=== PATIENT | male | born 1960 | race African-American/Black ===

== ENCOUNTER 2018-03-16 13:06 | Inpatient (IN) | payer OTHER ==
[2018-03-16 13:26] VITALS: BMI 32.0
--- NOTE | 2018-03-16 15:07 | HP ---
COWS - Scale Resting Pulse: 0= [place] 80 or Below Sweatin= Chills/Flushing Restless Observation: 1= Difficult to Sit Still Pupil Size: 1= Pupils >than Normal Bone or Joint Aches: 2= Severe Diffuse Aches Runny Nose/ Eye Tearin= Runny Nose/Eyes GI Upset > 30mins: 2= Nausea/Diarrhea Tremor Observation: 1= Tremor [place], Not Seen Yawning Observation: 0= None Anxiety or Irritability: 2=Irritable/Anxious Goose Flesh Skin: 0=Smooth Skin COWS Score: 12 CIWA Score Nausea/Vomitin Muscle Tremors: 1-None Visible, but [place] Anxiety: 3 Agitation: 3 Paroxysmal Sweats: 2 Orientation: 0-Oriented Tacttile Disturbances: 2-Mild Itch/Numbness/Burn Auditory Disturbances: 0-None Visual Disturbances: 0-None Headache: 1-Very Mild CIWA-Ar Total Score: 14 - Admission Criteria [facility] Guidelines: Admission for Medically Managed Detox: Requires at least one of the followin. CIWA greater than 12 2. Seizures within the past 24 hours 3. Delirium tremens within the past 24 hours 4. Hallucinations within the past 24 hours 5. Acute intervention needed for co occurring medical disorder 6. Acute intervention needed for co occurring psychiatric disorder 7. Severe withdrawal that cannot be handled at a lower level of care (continued vomiting, continued diarrhea, abnormal vital signs) requiring intravenous medication and/or fluids 8. Admission [facility] Chief Complaint: PATIENT PRESENTS WITH ETOH WITHDRAWAL AND HEROIN WITHDRAWAL SX Allergies/Adverse Reactions: Allergies Allergy/AdvReac Type Severity Reaction Status Date / Time No Known Allergies Allergy Verified 03/16/18 13:44 History of Present Illness: PATIENT IS NEW PATIENT TO [facility]. PRESENTS WITH ETOH/HEROIN WITHDRAWAL SX. PATIENT LAST DETOX WAS AT [facility] 2 MONTHS. WAS ON SUBOXONE PROGRAM BUT PATIENT STOPPED TAKING MEDICATION DUE TO SIDE EFFECTS. ISTOP VERIFIED LAST PRESCRIPTION WAS 02/25/18 FOR 7 DAYS. PATIENT STARTED DRINKING AT AGE 15, DRINKS UP 12 BEERS DAILY, LAST DRINK WAS LAST NIGHT. PATIENT DENIES SEIZURES, BLACKOUTS , FALLS AND DTS. PATIENT ALSO STARTING SNIFF HEROIN SINCE AGE 24 AND USES 9 BAGS DAILY. LAST USE LAST NIGHT. PATIENT DENIES IVDA. PMH INCLUDES DM, BPH, HLD , GERD, HTN, CHF, DEPRESSION AND SCIATICA. DENIES SI/HI AND SUICIDE ATTEMPTS. Exam Limitations: No Limitations - Ebola screening Have you traveled outside of the country in the last 21 days: No Have you had contact with anyone from an Ebola affected area: No Have you been sick,other than usual withdrawal symptoms: No Do you have a fever: No - Review of Systems Constitutional: Chills, Night Sweats, Changes in sleep EENT: reports: Tearing, Nose Congestion Respiratory: reports: Cough Cardiac: reports: No Symptoms Reported GI: reports: Diarrhea, Nausea, Poor Fluid Intake, Indigestion : reports: No Symptoms Reported Musculoskeletal: reports: Back Pain, Muscle Pain Integumentary: reports: Sweating Neuro: reports: Headache, Numbness, Tingling, Tremors Endocrine: reports: No Symptoms Reported Hematology: reports: No Symptoms Reported Psychiatric: reports: Orientated x3, Anxious, Depressed Patient History - Patient Medical History Hx Anemia: No Hx Asthma: No Hx Chronic Obstructive Pulmonary Disease (COPD): No Hx Cancer: No Hx Cardiac Disorders: Yes (HTN) Hx Congestive Heart Failure: Yes Hx Hypertension: Yes (ON MEDS) Hx Hypercholesterolemia: Yes Hx Pacemaker: No HX Cerebrovascular Accident: No Hx Seizures: No Hx Dementia: No Hx Diabetes: Yes Hx Gastrointestinal Disorders: Yes (ACID REFLUX) Hx Liver Disease: No Hx Genitourinary Disorders: No Hx Sexually Transmitted Disorders: No Hx Renal Disease (ESRD): No Hx Thyroid Disease: No Hx Human Immunodeficiency Virus (HIV): No Hx Hepatitis C: No Hx Depression: Yes Hx Suicide Attempt: No Hx Bipolar Disorder: No Hx Schizophrenia: No - Patient Surgical History Past Surgical History: Yes Hx Neurologic Surgery: No Hx Cataract Extraction: No Hx Cardiac Surgery: No Hx Lung Surgery: No Hx Breast Surgery: No Hx Breast Biopsy: No Hx Abdominal Surgery: No Hx Appendectomy: No Hx Cholecystectomy: No Hx Genitourinary Surgery: No Hx Orthopedic Surgery: No Other Surgical History: PROSTATE SURGERY 2017 Anesthesia Reaction: No - PPD History Previous Implant?: Yes Documented Results: Negative w/o proof Implanted On Prior [facility] Admission?: No PPD to be Administered?: Yes - Smoking Cessation Smoking history: Current every day smoker Have you smoked in the past 12 months: Yes Aproximately how many cigarettes per day: 7 Hx Chewing Tobacco Use: No Initiated information on smoking cessation: No 'Breaking Loose' booklet given: 03/16/18 - Substance & Tx. History Hx Alcohol Use: Yes Hx Substance Use: Yes Substance Use Type: Alcohol, Heroin - Substances Abused Alcohol Route: Oral Frequency: Daily Amount used: 8 BOTTLES OF BEER Age of first use: 15 Date of Last Use: 03/15/18 Heroin Route: Inhalation Frequency: Daily Amount used: 9 BAGS Age of first use: 24 Date of Last Use: 03/15/18 Family Disease History - Family Disease History Family Disease History: Diabetes: Mother, [place]: Father (), Sister Admission Physical Exam [facility] - Vital Signs Vital Signs: Vital Signs - 24 hr 03/16/18 13:24 Temperature 98 F Pulse Rate 53 L Respiratory 20 Rate Blood Pressure 157/86 - Physical General Appearance: Yes: Nourished, Appropriately Dressed, Sweating, Anxious HEENTM: Yes: EOMI, Hearing grossly Normal, Normocephalic, Normal Voice, TESHA, Pharynx Normal, Nasal Congestion Respiratory: Yes: Chest Non-Tender, Lungs Clear, Normal Breath Sounds, No Respiratory Distress, No Accessory Muscle Use Neck: Yes: No masses,lesions,Nodules, Supple, Trachea in good position Breast: Yes: Breast Exam Deferred Cardiology: Yes: Regular Rhythm, Regular Rate, S1, S2, Edema Abdominal: Yes: Normal Bowel Sounds, Non Tender, Soft Genitourinary: Yes: Within Normal Limits Back: Yes: Muscle Spasm Musculoskeletal: Yes: full range of Motion, Gait Steady, Back pain, Muscle Pain Extremities: Yes: Normal Inspection, Normal Range of Motion, Non-Tender 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 NML intact, Fully Oriented, Alert, Motor Strength 5/5, Normal Response, Depressed Affect Integumentary: Yes: Normal Color, Dry, Warm Lymphatic: Yes: Within Normal Limits - Diagnostic (1) Opioid dependence with withdrawal Current Visit: Yes Status: Acute (2) Alcohol dependence with uncomplicated withdrawal Current Visit: Yes Status: Acute (3) Diabetes 1.5, managed as type 2 Current Visit: Yes Status: Chronic (4) HTN (hypertension) Current Visit: Yes Status: Chronic Qualifiers: Hypertension type: unspecified Qualified Code(s): I10 - Essential (primary ) hypertension (5) HLD (hyperlipidemia) Current Visit: Yes Status: Chronic Qualifiers: Hyperlipidemia type: unspecified Qualified Code(s): E78.5 - Hyperlipidemia , unspecified (6) BPH (benign prostatic hyperplasia) Current Visit: Yes Status: Chronic Qualifiers: Lower urinary tract symptom detail: unspecified (7) GERD (gastroesophageal reflux disease) Current Visit: Yes Status: Chronic Qualifiers: Esophagitis presence: without esophagitis Qualified Code(s): K21.9 - Gastro -esophageal reflux disease without esophagitis (8) Depression Current Visit: Yes Status: Chronic Qualifiers: Major depression episode severity: unspecified Cleared for Admission [facility] - Detox or Rehab [facility] Level of Care: Medically Managed Detox Regimen/Protocol: Methadone/Librium [facility] Breath Alcohol Content Breath Alcohol Content: 0 Urine Drug Screen - Results Drug Screen Negative: No Urine Drug Screen Results: OPI-Opiates, BZO-Benzodiazepines, FEN-Fentanyl
[2018-03-16] MEDS ORDERED: hydrOXYzine PAMOATE 50 MG CAPSULE (FP) PO PRN (15:42)
[2018-03-16] MEDS ORDERED: IBUPROFEN 400 MG TABLET (FP) PO PRN (15:42)
[2018-03-16] MEDS ORDERED: P-EPHED 60MG/TRIPROLIDI 2.5MG TABLET PO PRN (15:42)
[2018-03-16] MEDS ORDERED: MAGNESIUM CITRATE 300 ML BOTTLE PO PRN (15:42)
[2018-03-16] MEDS ORDERED: MENTHOL/PHENOL 1 EACH UD MM PRN (15:42)
[2018-03-16] MEDS ORDERED: NICOTINE POLACRILEX 2 MG GUM BUC PRN (15:42)
[2018-03-16] MEDS ORDERED: LOPERAMIDE HCL 2 MG CAPSULE PO PRN (15:42)
[2018-03-16] MEDS ORDERED: guaiFENesin/D-METHORPHAN HB 10 ML UNIT-DOSE CUPS PO PRN (15:42)
[2018-03-16] MEDS ORDERED: ACETAMINOPHEN 325 MG TABLET (FP) PO PRN (15:42)
[2018-03-16] MEDS ORDERED: MAGNESIUM HYDROX 2400MG/30ML ORAL SUSPENSION 30 ML CUP PO PRN (15:42)
[2018-03-16] MEDS ORDERED: MAG HYDROX/AL HYDROX/SIMETH 30 ML UNIT-DOSE CUP PO PRN (15:42)
[2018-03-16] MEDS ORDERED: cloNIDine HCL 0.1 MG TABLET PO PRN (15:53)
[2018-03-16] MEDS ORDERED: chlordiazePOXIDE HCL 25 MG CAPSULE PO PRN (15:55)
[2018-03-16] MEDS ORDERED: ONDANSETRON *ODT* 4 MG TABLET SL PRN (15:56)
[2018-03-16] MEDS ORDERED: METHADONE HCL 10 MG TABLET (FOR DETOX USE ONLY) PO ONE ×2 (16:00→23:00)
[2018-03-16] MEDS: chlordiazePOXIDE HCL 25 MG CAPSULE PO SCH ×2 (16:50→22:25)
[2018-03-16] MEDS ORDERED: cloNIDine HCL 0.1 MG TABLET PO ONE (17:00)
[2018-03-16] MEDS: THIAMINE HCL 100 MG TABLET (FP) PO SCH (22:25)
[2018-03-16] MEDS: TAMSULOSIN HCL 0.4 MG CAP PO SCH (22:25)
[2018-03-16] MEDS: DOCUSATE SODIUM 100 MG CAPSULE (FP) PO SCH (22:25)
[2018-03-16] MEDS: QUEtiapine FUMARATE 100 MG TABLET (FP) PO SCH (22:25)
[2018-03-16] MEDS: ATORVASTATIN CA 10 MG TABLET (FP) PO SCH (22:25)
[2018-03-17] MEDS: chlordiazePOXIDE HCL 25 MG CAPSULE PO SCH ×4 (05:38→22:24)
[2018-03-17] MEDS: DOCUSATE SODIUM 100 MG CAPSULE (FP) PO SCH ×3 (05:38→22:24)
[2018-03-17] MEDS ORDERED: HYDROCHLOROTHIAZIDE 12.5 MG CAPSULE (FP) PO SCH (10:00)
[2018-03-17] MEDS ORDERED: METHADONE HCL 10 MG TABLET (FOR DETOX USE ONLY) PO SCH (10:00)
[2018-03-17] MEDS ORDERED: INSULIN (LEVEMIR) 100 UNITS/ML UNITS SQ SCH (10:00)
[2018-03-17] MEDS ORDERED: PATIENT'S OWN MEDICATION (NON-FORMULARY) (Losartan/Hydrochlorothiazide [Losartan-Hctz 100- PO SCH (10:00)
[2018-03-17] MEDS: PRENATAL VITAMINS W/ FOLIC ACID TABLET (FP) PO SCH (10:30)
[2018-03-17] MEDS: FINASTERIDE 5 MG TABLET (FP) PO SCH (10:30)
[2018-03-17] MEDS: TAMSULOSIN HCL 0.4 MG CAP PO SCH ×2 (10:31→22:24)
[2018-03-17] MEDS: LOSARTAN POTASSIUM 50 MG TABLET (FP) PO SCH (10:31)
[2018-03-17] MEDS: ASPIRIN COATED 81 MG TABLET.EC PO SCH (10:31)
[2018-03-17 10:51] LABS: HEMATOCRIT 41.4 % (35.4-49); HEMOGLOBIN 13.8 GM/dL (11.7-16.9); MCH 30.2 pg (25.7-33.7); MCHC 33.4 g/dl (32.0-35.9); MEAN CELL VOLUME 90.5 fl (80-96); PLATELET COUNT 163 K/MM3 (134-434); RBC 4.58 M/mm3 (4.00-5.60); RDW 13.7 % (11.9-15.9); WHITE BLOOD COUNT 4.4 K/mm3 (4.0-10.0)
[2018-03-17 10:58] LABS: ALBUMIN 3.3 g/dl (3.4-5.0); ALK PHOS 87 U/L (45-117); ANION GAP 7 MMOL/L (8-16); BILIRUBIN,TOTAL 0.8 mg/dL (0.2-1); BLOOD UREA NITROGEN 14 mg/dL (7-18); CALCIUM 8.4 mg/dL (8.5-10.1); CHLORIDE 107 mmol/L (98-107); CO2 28 mmol/L (21-32); CREATININE 0.8 mg/dL (0.55-1.3); GLUCOSE,RANDOM 97 mg/dL (74-106); POTASSIUM 3.9 mmol/L (3.5-5.1); SGOT/AST 46 U/L (15-37); SGPT/ALT 63 U/L (13-61); SODIUM 142 mmol/L (136-145); TOT PROT 6.6 g/dl (6.4-8.2)
[2018-03-17] MEDS ORDERED: cloNIDine HCL 0.1 MG TABLET PO PRN (12:15)
--- NOTE | 2018-03-17 12:16 | PN ---
S CIWA - CIWA Score Nausea/Vomitin-Mild Nausea/No Vomiting Muscle Tremors: 3 Anxiety: 2 Agitation: 3 Paroxysmal Sweats: 1-Minimal Palms Moist Orientation: 0-Oriented Tacttile Disturbances: 0-None Auditory Disturbances: 0-None Visual Disturbances: 0-None Headache: 2-Mild CIWA-Ar Total Score: 12 BHS COWS - Scale Resting Pulse: 0= [place] 80 or Below Sweatin= Chills/Flushing Restless Observation: 0= Sits Still Pupil Size: 0= Normal to Room Light Bone or Joint Aches: 1= Mild Discomfort Runny Nose/ Eye Tearin= Nasal Congestion GI Upset > 30mins: 2= Nausea/Diarrhea Tremor Observation of Outstretched Hands: 1= Tremor [place], Not Seen Yawning Observation: 1= 1-2x During Session Anxiety or Irritability: 1=Feels Anxious/Irritable Goose Flesh Skin: 0=Smooth Skin COWS Score: 8 BHS Progress Note (SOAP) Subjective: patient preferred to complete detox regimen on Friday that he is feeling better in the process of detox mild body aches little tremor less sweating reported no checking finger for sugar everyday at home chart review for average bgm below 150 change bgm once a day before breakfast Objective: 03/17/18 12:20 Vital Signs Temperature 96.7 F L 03/17/18 09:05 Pulse Rate 59 L 03/17/18 09:05 Respiratory Rate 18 03/17/18 09:05 Blood Pressure 154/79 03/17/18 09:05 O2 Sat by Pulse Oximetry (%) Laboratory Last Values WBC 4.4 K/mm3 (4.0-10.0) 03/17/18 07:00 RBC 4.58 M/mm3 (4.00-5.60) 03/17/18 07:00 Hgb 13.8 GM/dL (11.7-16.9) 03/17/18 07:00 Hct 41.4 % (35.4-49) 03/17/18 07:00 MCV 90.5 fl (80-96) 03/17/18 07:00 MCH 30.2 pg (25.7-33.7) 03/17/18 07:00 MCHC 33.4 g/dl (32.0-35.9) 03/17/18 07:00 RDW 13.7 % (11.9-15.9) 03/17/18 07:00 Plt Count 163 K/MM3 (134-434) 03/17/18 07:00 MPV 9.0 fl (7.5-11.1) 03/17/18 07:00 Sodium 142 mmol/L (136-145) 03/17/18 07:00 Potassium 3.9 mmol/L (3.5-5.1) 03/17/18 07:00 Chloride 107 mmol/L (98-107) 03/17/18 07:00 Carbon Dioxide 28 mmol/L (21-32) 03/17/18 07:00 Anion Gap 7 MMOL/L (8-16) L 03/17/18 07:00 BUN 14 mg/dL (7-18) 03/17/18 07:00 Creatinine 0.8 mg/dL (0.55-1.3) 03/17/18 07:00 Creat Clearance w eGFR > 60 (>60) 03/17/18 07:00 POC Glucometer 106 UNITS (80-120) 03/17/18 05:40 Random Glucose 97 mg/dL (74-106) 03/17/18 07:00 Calcium 8.4 mg/dL (8.5-10.1) L 03/17/18 07:00 Total Bilirubin 0.8 mg/dL (0.2-1) 03/17/18 07:00 AST 46 U/L (15-37) H 03/17/18 07:00 ALT 63 U/L (13-61) H 03/17/18 07:00 Alkaline Phosphatase 87 U/L (45-117) 03/17/18 07:00 Total Protein 6.6 g/dl (6.4-8.2) 03/17/18 07:00 Albumin 3.3 g/dl (3.4-5.0) L 03/17/18 07:00 lab noted hypertension Assessment: 03/17/18 12:21 withdrawal sx hypertension Plan: continue detox HCTZ 25 mg po
--- NOTE | 2018-03-17 12:24 | PN ---
BHS Progress Note Note: patient requests to complete detox regimen one day early modify detox regimen
[2018-03-17] MEDS: HYDROCHLOROTHIAZIDE 25 MG TABLET (FP) PO SCH (13:01)
--- NOTE | 2018-03-17 17:02 | EKG ---
Test Reason : Blood Pressure : / mmHG Vent. Rate : 055 BPM Atrial Rate : 055 BPM P-R Int : 234 ms QRS Dur : 090 ms QT Int : 418 ms P-R-T Axes : 069 021 026 degrees QTc Int : 399 ms SINUS BRADYCARDIA WITH 1ST DEGREE A-V BLOCK LEFT ATRIAL ENLARGEMENT Old inferior infarct. ABNORMAL ECG Confirmed by MD PINEDA MOYSES ([id number]) on 03/17/2018 5:02:05 PM Referred By: Confirmed By:ERICA PINEDA MD
[2018-03-17] MEDS: QUEtiapine FUMARATE 100 MG TABLET (FP) PO SCH (22:24)
[2018-03-17] MEDS: MELATONIN 5 MG TABLETS PO PRN (22:24)
[2018-03-17] MEDS: ATORVASTATIN CA 10 MG TABLET (FP) PO SCH (22:24)
[2018-03-17] MEDS: THIAMINE HCL 100 MG TABLET (FP) PO SCH (22:26)
[2018-03-18] MEDS: DOCUSATE SODIUM 100 MG CAPSULE (FP) PO SCH ×3 (05:42→22:06)
[2018-03-18] MEDS: chlordiazePOXIDE HCL 25 MG CAPSULE PO SCH ×2 (05:42→10:12)
--- NOTE | 2018-03-18 08:29 | PN ---
S CIWA - CIWA Score Nausea/Vomitin-Mild Nausea/No Vomiting Muscle Tremors: 2 Anxiety: 1-Mildly Anxious Agitation: 1-Slight > Activity Paroxysmal Sweats: 1-Minimal Palms Moist Orientation: 0-Oriented Tacttile Disturbances: 0-None Auditory Disturbances: 0-None Visual Disturbances: 0-None Headache: 1-Very Mild CIWA-Ar Total Score: 7 BHS COWS - Scale Resting Pulse: 0= [place] 80 or Below Sweatin= Chills/Flushing Restless Observation: 0= Sits Still Pupil Size: 0= Normal to Room Light Bone or Joint Aches: 1= Mild Discomfort Runny Nose/ Eye Tearin= Nasal Congestion GI Upset > 30mins: 1= Stomach Cramp Tremor Observation of Outstretched Hands: 1= Tremor [place], Not Seen Yawning Observation: 0= None Anxiety or Irritability: 1=Feels Anxious/Irritable Goose Flesh Skin: 0=Smooth Skin COWS Score: 6 BHS Progress Note (SOAP) Subjective: patient is taking hctz 25 mg po daily last filled 30 days on 03/04/18 recoiled home med change 10 am levemir 30 units to 0700 am as well as bgm sweating body aches otherwise feeling ok Objective: 03/18/18 15:20 Vital Signs Temperature 97.4 F L 03/18/18 13:18 Pulse Rate 48 L 03/18/18 13:18 Respiratory Rate 18 03/18/18 13:18 Blood Pressure 166/72 03/18/18 13:18 O2 Sat by Pulse Oximetry (%) Laboratory Last Values WBC 4.4 K/mm3 (4.0-10.0) 03/17/18 07:00 RBC 4.58 M/mm3 (4.00-5.60) 03/17/18 07:00 Hgb 13.8 GM/dL (11.7-16.9) 03/17/18 07:00 Hct 41.4 % (35.4-49) 03/17/18 07:00 MCV 90.5 fl (80-96) 03/17/18 07:00 MCH 30.2 pg (25.7-33.7) 03/17/18 07:00 MCHC 33.4 g/dl (32.0-35.9) 03/17/18 07:00 RDW 13.7 % (11.9-15.9) 03/17/18 07:00 Plt Count 163 K/MM3 (134-434) 03/17/18 07:00 MPV 9.0 fl (7.5-11.1) 03/17/18 07:00 Sodium 142 mmol/L (136-145) 03/17/18 07:00 Potassium 3.9 mmol/L (3.5-5.1) 03/17/18 07:00 Chloride 107 mmol/L (98-107) 03/17/18 07:00 Carbon Dioxide 28 mmol/L (21-32) 03/17/18 07:00 Anion Gap 7 MMOL/L (8-16) L 03/17/18 07:00 BUN 14 mg/dL (7-18) 03/17/18 07:00 Creatinine 0.8 mg/dL (0.55-1.3) 03/17/18 07:00 Creat Clearance w eGFR > 60 (>60) 03/17/18 07:00 POC Glucometer 113 UNITS (80-120) 03/18/18 05:41 Random Glucose 97 mg/dL (74-106) 03/17/18 07:00 Calcium 8.4 mg/dL (8.5-10.1) L 03/17/18 07:00 Total Bilirubin 0.8 mg/dL (0.2-1) 03/17/18 07:00 AST 46 U/L (15-37) H 03/17/18 07:00 ALT 63 U/L (13-61) H 03/17/18 07:00 Alkaline Phosphatase 87 U/L (45-117) 03/17/18 07:00 Total Protein 6.6 g/dl (6.4-8.2) 03/17/18 07:00 Albumin 3.3 g/dl (3.4-5.0) L 03/17/18 07:00 RPR Titer Nonreactive (NONREACTIVE) 03/17/18 07:00 lab noted discuss negative consequences of uncontrolled bp Assessment: 03/18/18 15:21 withdrawal sx Plan: continue detox
[2018-03-18] MEDS ORDERED: METHADONE HCL 5 MG TABLET (FOR DETOX USE ONLY) PO ONE (10:00)
[2018-03-18] MEDS ORDERED: METHADONE HCL 5 MG TABLET (FOR DETOX USE ONLY) PO SCH (10:00)
[2018-03-18] MEDS: PRENATAL VITAMINS W/ FOLIC ACID TABLET (FP) PO SCH (10:10)
[2018-03-18] MEDS: LOSARTAN POTASSIUM 50 MG TABLET (FP) PO SCH (10:11)
[2018-03-18] MEDS: HYDROCHLOROTHIAZIDE 25 MG TABLET (FP) PO SCH (10:11)
[2018-03-18] MEDS: ASPIRIN COATED 81 MG TABLET.EC PO SCH (10:11)
[2018-03-18] MEDS: TAMSULOSIN HCL 0.4 MG CAP PO SCH ×2 (10:11→22:06)
[2018-03-18] MEDS: FINASTERIDE 5 MG TABLET (FP) PO SCH (10:12)
[2018-03-18] MEDS ORDERED: COLLOIDAL OATMEAL 1 BAR EACH TP PRN (12:52)
[2018-03-18] MEDS: chlordiazePOXIDE 5 MG CAPSULE PO SCH ×2 (17:39→22:06)
[2018-03-18] MEDS: QUEtiapine FUMARATE 100 MG TABLET (FP) PO SCH (22:06)
[2018-03-18] MEDS: THIAMINE HCL 100 MG TABLET (FP) PO SCH (22:06)
[2018-03-18] MEDS: MELATONIN 5 MG TABLETS PO PRN (22:07)
[2018-03-18] MEDS: ATORVASTATIN CA 10 MG TABLET (FP) PO SCH (22:07)
[2018-03-19] MEDS: chlordiazePOXIDE 5 MG CAPSULE PO SCH ×2 (05:42→10:23)
[2018-03-19] MEDS: DOCUSATE SODIUM 100 MG CAPSULE (FP) PO SCH ×3 (05:42→22:02)
[2018-03-19] MEDS: INSULIN (LEVEMIR) 100 UNITS/ML UNITS SQ SCH (06:25)
[2018-03-19] MEDS ORDERED: METHADONE HCL 10 MG TABLET (FOR DETOX USE ONLY) PO ONE (10:00)
[2018-03-19] MEDS: PRENATAL VITAMINS W/ FOLIC ACID TABLET (FP) PO SCH (10:21)
[2018-03-19] MEDS: LOSARTAN POTASSIUM 50 MG TABLET (FP) PO SCH (10:21)
[2018-03-19] MEDS: ASPIRIN COATED 81 MG TABLET.EC PO SCH (10:22)
[2018-03-19] MEDS: FINASTERIDE 5 MG TABLET (FP) PO SCH (10:22)
[2018-03-19] MEDS: HYDROCHLOROTHIAZIDE 25 MG TABLET (FP) PO SCH (10:22)
[2018-03-19] MEDS: TAMSULOSIN HCL 0.4 MG CAP PO SCH ×2 (10:22→22:01)
--- NOTE | 2018-03-19 15:19 | PN ---
BHS Progress Note (SOAP) Subjective: Interrupted Sleep, Hot / Cold Sensations, Sweating, Tremors, Fatigue. Objective: PATIENT A & O X 3. IN NO ACUTE DISTRESS. 03/19/18 15:22 Vital Signs Temperature 98.4 F 03/19/18 14:31 Pulse Rate 70 03/19/18 14:31 Respiratory Rate 20 03/19/18 14:31 Blood Pressure 116/78 03/19/18 14:31 O2 Sat by Pulse Oximetry (%) Laboratory Tests 03/16/18 03/17/18 03/17/18 13:58 05:40 07:00 WBC 4.4 RBC 4.58 Hgb 13.8 Hct 41.4 MCV 90.5 MCH 30.2 MCHC 33.4 RDW 13.7 Plt Count 163 MPV 9.0 Sodium Potassium Chloride Carbon Dioxide Anion Gap BUN Creatinine Creat Clearance w eGFR POC Glucometer 136 106 Random Glucose Calcium Total Bilirubin AST ALT Alkaline Phosphatase Total Protein Albumin RPR Titer 03/17/18 03/17/18 03/18/18 07:00 07:00 05:41 WBC RBC Hgb Hct MCV MCH MCHC RDW Plt Count MPV Sodium 142 Potassium 3.9 Chloride 107 Carbon Dioxide 28 Anion Gap 7 L BUN 14 Creatinine 0.8 Creat Clearance w eGFR > 60 POC Glucometer 113 Random Glucose 97 Calcium 8.4 L Total Bilirubin 0.8 AST 46 H ALT 63 H Alkaline Phosphatase 87 Total Protein 6.6 Albumin 3.3 L RPR Titer Nonreactive 03/19/18 05:44 WBC RBC Hgb Hct MCV MCH MCHC RDW Plt Count MPV Sodium Potassium Chloride Carbon Dioxide Anion Gap BUN Creatinine Creat Clearance w eGFR POC Glucometer 112 Random Glucose Calcium Total Bilirubin AST ALT Alkaline Phosphatase Total Protein Albumin RPR Titer LABS NOTED. Assessment: 03/19/18 15:22 WITHDRAWAL SYMPTOMS. Plan: CONTINUE DETOX.
[2018-03-19] MEDS: chlordiazePOXIDE HCL 10 MG CAPSULE PO SCH ×2 (17:00→22:01)
[2018-03-19] MEDS: THIAMINE HCL 100 MG TABLET (FP) PO SCH (22:01)
[2018-03-19] MEDS: MELATONIN 5 MG TABLETS PO PRN (22:02)
[2018-03-19] MEDS: ATORVASTATIN CA 10 MG TABLET (FP) PO SCH (22:02)
[2018-03-19] MEDS: QUEtiapine FUMARATE 100 MG TABLET (FP) PO SCH (22:02)
[2018-03-19 23:49] LABS: URINE APPEARANCE CLEAR; URINE BILIRUBIN NEGATIVE (<2.0 mg/dL); URINE COLOR LTYELLOW; URINE GLUCOSE (UA) NEGATIVE (NEGATIVE); URINE KETONE NEGATIVE (NEGATIVE); URINE LEUK ESTERASE NEGATIVE (NEGATIVE); URINE NITRITE NEGATIVE (NEGATIVE); URINE PROTEIN NEGATIVE (NEGATIVE); URINE UROBILINOGEN NEGATIVE mg/dL (0.2-1.0)
[2018-03-20] MEDS ORDERED: METHADONE HCL 5 MG TABLET (FOR DETOX USE ONLY) PO ONE (06:00)
[2018-03-20] MEDS: chlordiazePOXIDE HCL 10 MG CAPSULE PO SCH (06:12)
[2018-03-20] MEDS: DOCUSATE SODIUM 100 MG CAPSULE (FP) PO SCH (06:12)
[2018-03-20 06:19] VITALS: BP 144/78; PULSE 52; TEMP 97
[2018-03-20] MEDS: INSULIN (LEVEMIR) 100 UNITS/ML UNITS SQ SCH (08:18)
[2018-03-20] MEDS ORDERED: METHADONE HCL 10 MG TABLET (FOR DETOX USE ONLY) PO SCH (10:00)
--- NOTE | 2018-03-20 18:20 | DS ---
[facility] Detox Discharge Summary Admission Date: 03/16/18 Discharge Date: 03/20/18 - History Present History: Alcohol Dependence, Opioid Dependence Additional Comments: PATIENT WILL ATTEND [facility] ([place], [place]) FOR AFTERCARE. PATIENT WAS DISCHARGED FROM DETOX UNIT INSTABLE MEDICAL CONDITION. Pertinent Past History: BPH, G.E.R.D., HTN, DM, Hyperlipiemia, History of Depression. - Physical Exam Results Vital Signs: Vital Signs Temperature 97.0 F L 03/20/18 06:18 Pulse Rate 52 L 03/20/18 06:18 Respiratory Rate 18 03/20/18 06:18 Blood Pressure 144/78 03/20/18 06:18 O2 Sat by Pulse Oximetry (%) Pertinent Admission Physical Exam Findings: WITHDRAWAL SYMPTOMS. Laboratory Tests 03/16/18 03/17/18 03/17/18 13:58 05:40 07:00 WBC 4.4 RBC 4.58 Hgb 13.8 Hct 41.4 MCV 90.5 MCH 30.2 MCHC 33.4 RDW 13.7 Plt Count 163 MPV 9.0 Sodium Potassium Chloride Carbon Dioxide Anion Gap BUN Creatinine Creat Clearance w eGFR POC Glucometer 136 106 Random Glucose Calcium Total Bilirubin AST ALT Alkaline Phosphatase Total Protein Albumin Urine Color Urine Appearance Urine pH Ur Specific [place] Urine Protein Urine Glucose (UA) Urine Ketones Urine Blood Urine Nitrite Urine Bilirubin Urine Urobilinogen Ur Leukocyte Esterase RPR Titer 03/17/18 03/17/18 03/18/18 07:00 07:00 05:41 WBC RBC Hgb Hct MCV MCH MCHC RDW Plt Count MPV Sodium 142 Potassium 3.9 Chloride 107 Carbon Dioxide 28 Anion Gap 7 L BUN 14 Creatinine 0.8 Creat Clearance w eGFR > 60 POC Glucometer 113 Random Glucose 97 Calcium 8.4 L Total Bilirubin 0.8 AST 46 H ALT 63 H Alkaline Phosphatase 87 Total Protein 6.6 Albumin 3.3 L Urine Color Urine Appearance Urine pH Ur Specific [place] Urine Protein Urine Glucose (UA) Urine Ketones Urine Blood Urine Nitrite Urine Bilirubin Urine Urobilinogen Ur Leukocyte Esterase RPR Titer Nonreactive 03/19/18 03/19/18 03/20/18 05:44 15:12 06:11 WBC RBC Hgb Hct MCV MCH MCHC RDW Plt Count MPV Sodium Potassium Chloride Carbon Dioxide Anion Gap BUN Creatinine Creat Clearance w eGFR POC Glucometer 112 117 Random Glucose Calcium Total Bilirubin AST ALT Alkaline Phosphatase Total Protein Albumin Urine Color Ltyellow Urine Appearance Clear Urine pH 7.0 Ur Specific [place] 1.014 Urine Protein Negative Urine Glucose (UA) Negative Urine Ketones Negative Urine Blood Negative Urine Nitrite Negative Urine Bilirubin Negative Urine Urobilinogen Negative Ur Leukocyte Esterase Negative RPR Titer LABS NOTED. - Treatment Hospital Course: Detox Protocol Followed, Detoxed Safely, Responded well, Discharged Condition Good Patient has Accepted a Rehab Referral to: PT GOING TO [facility], [place], [place] - Medication Discharge Medications: Ambulatory Orders Aspirin [Aspirin EC] 81 mg PO DAILY 03/16/18 Docusate Sodium 100 mg PO TID 03/16/18 Insulin Glargine,Hum.rec.anlog [Basaglar Kwikpen U-100] 30 unit SQ DAILY Losartan/Hydrochlorothiazide [Losartan-Hctz 100-12.5 mg Tab] 1 tab PO DAILY Methocarbamol 750 mg PO TID 03/16/18 Quetiapine Fumarate [Seroquel -] 100 mg PO HS 03/16/18 Simvastatin 20 mg PO HS 03/16/18 Tamsulosin HCl 0.4 mg PO BID 03/16/18 Losartan/Hydrochlorothiazide [Losartan-Hctz 100-25 mg Tab] 1 each PO DAILY 03/18 Atorvastatin Ca [Lipitor] 10 mg PO HS #14 tablet 03/19/18 Clonidine HCl 0.1 mg PO DAILY PRN #14 tablet 03/19/18 Finasteride 5 mg PO DAILY #14 tablet 03/19/18 Losartan Potassium [Cozaar -] 100 mg PO DAILY #14 tablet 03/19/18 - Diagnosis (1) Alcohol dependence with uncomplicated withdrawal Status: Acute (2) Opioid dependence with withdrawal Status: Acute (3) BPH (benign prostatic hyperplasia) Status: Chronic Qualifiers: Lower urinary tract symptom presence: unspecified whether lower urinary tract symptoms present Qualified Code(s): N40.0 - Benign prostatic hyperplasia without lower urinary tract symptoms (4) Depression Status: Chronic Qualifiers: Depression Type: unspecified Qualified Code(s): F32.9 - Major depressive disorder, single episode, unspecified (5) Diabetes 1.5, managed as type 2 Status: Chronic (6) GERD (gastroesophageal reflux disease) Status: Chronic Qualifiers: Esophagitis presence: without esophagitis Qualified Code(s): K21.9 - Gastro -esophageal reflux disease without esophagitis (7) HLD (hyperlipidemia) Status: Chronic Qualifiers: Hyperlipidemia type: unspecified Qualified Code(s): E78.5 - Hyperlipidemia , unspecified (8) HTN (hypertension) Status: Chronic Qualifiers: Hypertension type: unspecified Qualified Code(s): I10 - Essential (primary ) hypertension - AMA Did Patient Leave Against Medical Advice: No
[2018-03-21] MEDS ORDERED: METHADONE HCL 5 MG TABLET (FOR DETOX USE ONLY) PO SCH (06:00)
== END 2018-03-20 08:45 | disposition home or self-care (01) | DRG 773 ==
LOC: YASAS 13:06 → Y3N 15:23
PROVIDERS: ADMIT Neuromusculoskeletal Medicine & OMM; ATTEND Neuromusculoskeletal Medicine & OMM
PROC: HZ2ZZZZ Detoxification Services for Substance Abuse Treatment (ICD-10-PCS; principal; 2018-03-16)
DX: F11.23 Opioid dependence with withdrawal (principal); F10.230 Alcohol dependence with withdrawal, uncomplicated; F33.9 Major depressive disorder, recurrent, unspecified; I11.0 Hypertensive heart disease with heart failure; I50.9 Heart failure, unspecified; E78.5 Hyperlipidemia, unspecified; E11.9 Type 2 diabetes mellitus without complications; Z79.4 Long term (current) use of insulin; K21.9 Gastro-esophageal reflux disease without esophagitis; N40.0 Benign prostatic hyperplasia without lower urinary tract symptoms
CPT/HCPCS: 36415; 80053; 81003; 82962; 85027; 86593; 93005; 93010; J0735

== ENCOUNTER 2019-05-03 19:40 | Inpatient (IN) | payer OTHER ==
[~2019-05-03 19:40] MED LIST: chlordiazePOXIDE HCL 25 MG CAPSULE PO SCH
--- NOTE | 2019-05-03 21:40 | BHS.RME ---
Substance Use & Tx History - Last Treatment Where was last treatment: Detox COWS - Scale Resting Pulse: 0= [place] 80 or Below Sweatin=Flushed/Facial Moisture Restless Observation: 0= Sits Still Pupil Size: 1= Pupils >than Normal Bone or Joint Aches: 4=Acute Joint/Muscle Pain Runny Nose/ Eye Tearin= Nasal Congestion GI Upset > 30mins: 3= Vomiting/Diarrhea (vomiting x 2, diarrhea x 1) Tremor Observation: 2= Slight Tremor Visible Yawning Observation: 1= 1-2x During Session Anxiety or Irritability: 2=Irritable/Anxious Goose Flesh Skin: 0=Smooth Skin COWS Score: 16 CIWA Nausea/Vomitin Muscle Tremors: 3 Anxiety: 3 Agitation: 3 Paroxysmal Sweats: 2 Orientation: 2-Disoriented Date<2 days Tacttile Disturbances: 0-None Auditory Disturbances: 0-None Visual Disturbances: 0-None Headache: 2-Mild CIWA-Ar Total Score: 18
[2019-05-03 22:32] VITALS: BMI 30.4
--- NOTE | 2019-05-03 22:50 | HP ---
COWS - Scale Resting Pulse: 0= DC 80 or Below Sweatin=Flushed/Facial Moisture Restless Observation: 0= Sits Still Pupil Size: 1= Pupils >than Normal Bone or Joint Aches: 4=Acute Joint/Muscle Pain Runny Nose/ Eye Tearin= Nasal Congestion GI Upset > 30mins: 3= Vomiting/Diarrhea (vomiting x 2, diarrhea x 1) Tremor Observation: 2= Slight Tremor Visible Yawning Observation: 1= 1-2x During Session Anxiety or Irritability: 2=Irritable/Anxious Goose Flesh Skin: 0=Smooth Skin COWS Score: 16 CIWA Score Nausea/Vomitin Muscle Tremors: 3 Anxiety: 3 Agitation: 3 Paroxysmal Sweats: 2 Orientation: 2-Disoriented Date<2 days Tacttile Disturbances: 0-None Auditory Disturbances: 0-None Visual Disturbances: 0-None Headache: 2-Mild CIWA-Ar Total Score: 18 - Admission Criteria OASAS Guidelines: Admission for Medically Managed Detox: Requires at least one of the followin. CIWA greater than 12 2. Seizures within the past 24 hours 3. Delirium tremens within the past 24 hours 4. Hallucinations within the past 24 hours 5. Acute intervention needed for co occurring medical disorder 6. Acute intervention needed for co occurring psychiatric disorder 7. Severe withdrawal that cannot be handled at a lower level of care (continued vomiting, continued diarrhea, abnormal vital signs) requiring intravenous medication and/or fluids 8. Admitting History and Physical - Smoking History Smoking history: Current every day smoker Have you smoked in the past 12 months: Yes Aproximately how many cigarettes per day: 7 - Alcohol/Substance Use Hx Alcohol Use: Yes Admission [facility] Chief Complaint: Seeking admission to detox from alcohol and heroin Allergies/Adverse Reactions: Allergies Allergy/AdvReac Type Severity Reaction Status Date / Time No Known Allergies Allergy Verified 05/03/19 22:20 History of Present Illness: 58 years old male with along history of alcohol and heroin dependence is seeking admission to detox. Patient has medical history of DM type 2, CHF, hypertension, BPH, hyperlipidemia, GERD, sciatica and psych. history of depression. 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 His last admission was for the period 03/16/2018 - 03/20/2018 and he reports that he relapsed about 6 months after his last detox. Exam Limitations: Physical Impairment (bilteral lower exremity swelling) - Ebola screening Have you traveled outside of the country in the last 21 days: No Have you had contact with anyone from an Ebola affected area: No Do you have a fever: No - Review of Systems Constitutional: Chills, Malaise, Night Sweats, Changes in sleep EENT: reports: Nose Congestion Respiratory: reports: No Symptoms reported Cardiac: reports: No Symptoms Reported GI: reports: Diarrhea (x 2), Nausea, Poor Fluid Intake, Vomiting (x 2), Abdominal cramping : reports: No Symptoms Reported Musculoskeletal: reports: Back Pain, Muscle Pain, Neck Pain Integumentary: reports: Dryness, Flushing Neuro: reports: Headache, Tremors Endocrine: reports: No Symptoms Reported Hematology: reports: No Symptoms Reported Psychiatric: reports: Mood/Affect Appropiate, Orientated x3, Anxious Other Systems: Reviewed and Negative Patient History - Patient Medical History Hx Anemia: No Hx Asthma: No Hx Chronic Obstructive Pulmonary Disease (COPD): No Hx Cancer: No Hx Cardiac Disorders: Yes (HTN) Hx Congestive Heart Failure: Yes Hx Hypertension: Yes Hx Hypercholesterolemia: Yes Hx Pacemaker: No HX Cerebrovascular Accident: No Hx Seizures: No Hx Dementia: No Hx Diabetes: Yes Hx Gastrointestinal Disorders: Yes (ACID REFLUX) Hx Liver Disease: No Hx Genitourinary Disorders: Yes (BPH) Hx Sexually Transmitted Disorders: No Hx Renal Disease (ESRD): No Hx Thyroid Disease: No Hx Human Immunodeficiency Virus (HIV): No (Unknown status. refue to be tested) Hx Hepatitis C: No Hx Depression: Yes (Nt on medication) Hx Suicide Attempt: No Hx Bipolar Disorder: No Hx Schizophrenia: No Other Medical History: Sciatica - Patient Surgical History Past Surgical History: Yes Hx Neurologic Surgery: No Hx Cataract Extraction: No Hx Cardiac Surgery: Yes ( CARDIAC CATHETERIZATION T AGE 10) Hx Lung Surgery: No Hx Breast Surgery: No Hx Breast Biopsy: No Hx Abdominal Surgery: No Hx Appendectomy: No Hx Cholecystectomy: No Hx Genitourinary Surgery: No Hx Section: No Hx Orthopedic Surgery: No Other Surgical History: PROSTATE SURGERY 2017, Anesthesia Reaction: No - PPD History Previous Implant?: Yes Documented Results: Negative w/proof Implanted On Prior [facility] Admission?: Yes Date: 03/18/18 PPD to be Administered?: Yes - Reproductive History Patient is a Female of Child Bearing Age (11 -55 yrs old): No (male) - Smoking Cessation Smoking history: Current every day smoker Have you smoked in the past 12 months: Yes Aproximately how many cigarettes per day: 7 Hx Chewing Tobacco Use: No Initiated information on smoking cessation: Yes 'Breaking Loose' booklet given: 05/03/19 - Substance & Tx. History Hx Alcohol Use: Yes Hx Substance Use: Yes Substance Use Type: Heroin, Marijuana, Opiates Hx Substance Use [facility]: [facility] - Substances abused Alcohol Substance route: Oral Frequency: Daily Amount used: 2 SIX PACKS Age of first use: 14 Date of last use: 05/03/19 Heroin Substance route: Inhalation Frequency: Daily Amount used: 2 BUNDLES Age of first use: 17 Date of last use: 05/03/19 Cocaine Substance route: Oral Frequency: Daily Amount used: 60$ Age of first use: 16 Date of last use: 05/02/19 Marijuana/Hashish Substance route: Smoking Frequency: Daily Amount used: $20 Age of first use: 12 Date of last use: 05/01/19 Alprazolam (Xanax) Substance route: Oral Frequency: Daily Amount used: 2MG Age of first use: 56 Date of last use: 05/02/19 Admission Physical Exam S - Vital Signs Vital Signs: Vital Signs - 24 hr 05/03/19 22:20 Temperature 97.9 F Pulse Rate 47 L Respiratory 20 Rate Blood Pressure 179/78 H - Physical General Appearance: Yes: Moderate Distress, Tremorous, Irritable, Sweating, Anxious HEENTM: Yes: Within Normal Limits Respiratory: Yes: Lungs Clear, Normal Breath Sounds, No Respiratory Distress Neck: Yes: Within Normal Limits Breast: Yes: Breast Exam Deferred Cardiology: Yes: Bradycardia Abdominal: Yes: Normal Bowel Sounds, Soft Genitourinary: Yes: Within Normal Limits Back: Yes: Normal Inspection Musculoskeletal: Yes: Back pain, Muscle Pain Extremities: Yes: Tremors, Swelling (bilateral lower extremities) Neurological: Yes: Within Normal Limits, Alert, Normal Mood/Affect Integumentary: Yes: Pale, Diaphoresis Lymphatic: Yes: Within Normal Limits - Diagnostic (1) DM type 2 (diabetes mellitus, type 2) Current Visit: Yes Status: Chronic Qualifiers: Diabetes mellitus correction insulin use: unspecified terminal system operator insulin use status (2) CHF (congestive heart failure) Current Visit: Yes Status: Acute Qualifiers: Heart failure type: unspecified Heart failure chronicity: unspecified Qualified Code(s): I50.9 - Heart failure, unspecified (3) Sciatica Current Visit: Yes Status: Chronic Qualifiers: Laterality: left Qualified Code(s): M54.32 - Sciatica, left side (4) Alcohol dependence with uncomplicated withdrawal Current Visit: Yes Status: Acute (5) Opioid dependence with withdrawal Current Visit: No Status: Acute (6) BPH (benign prostatic hyperplasia) Current Visit: Yes Status: Chronic Qualifiers: Lower urinary tract symptom presence: unspecified whether lower urinary tract symptoms present Qualified Code(s): N40.0 - Benign prostatic hyperplasia without lower urinary tract symptoms (7) Depression Current Visit: Yes Status: Chronic Qualifiers: Depression Type: unspecified Qualified Code(s): F32.9 - Major depressive disorder, single episode, unspecified (8) GERD (gastroesophageal reflux disease) Current Visit: Yes Status: Chronic Qualifiers: Esophagitis presence: without esophagitis Qualified Code(s): K21.9 - Gastro-esophageal reflux disease without esophagitis (9) HLD (hyperlipidemia) Current Visit: Yes Status: Chronic Qualifiers: Hyperlipidemia type: unspecified Qualified Code(s): E78.5 - Hyperlipidemia, unspecified (10) HTN (hypertension) Current Visit: Yes Status: Chronic Qualifiers: Hypertension type: unspecified Qualified Code(s): I10 - Essential (primary) hypertension Cleared for Admission S - Detox or Rehab [facility] Level of Care: Medically Managed Detox Regimen/Protocol: Methadone/Librium Claeared for Rehab Admission: No Breathalyzer - Breathalyzer Breathalyzer: 0 Urine Drug Screen - Test Device Lot number: [id number] Expiration date: 01/23/21 - Control Is test valid?: Yes - Results Drug screen NEGATIVE: No Urine drug screen results: THC-Marijuana, FEN-Fentanyl, MOP-Opiates Inpatient Rehab Admission - Rehab Decision to Admit Inpatient rehab admission?: No
[2019-05-03] MEDS ORDERED: ONDANSETRON *ODT* 4 MG TABLET SL ONE (23:22)
[2019-05-03] MEDS ORDERED: MAG HYDROX/AL HYDROX/SIMETH 30 ML UNIT-DOSE CUP PO PRN (23:22)
[2019-05-03] MEDS ORDERED: MAGNESIUM HYDROX 2400MG/30ML ORAL SUSPENSION 30 ML CUP PO PRN (23:22)
[2019-05-03] MEDS ORDERED: IBUPROFEN 400 MG TABLET (FP) PO PRN (23:22)
[2019-05-03] MEDS ORDERED: ACETAMINOPHEN 325 MG TABLET (FP) PO PRN ×2 (23:22)
[2019-05-03] MEDS ORDERED: BISMUTH SUBSALICYLATE 524 MG/30 ML UD PO PRN (23:22)
[2019-05-03] MEDS ORDERED: chlordiazePOXIDE HCL 10 MG CAPSULE PO PRN (23:22)
[2019-05-03] MEDS ORDERED: METHOCARBAMOL 500 MG TABLET PO PRN (23:22)
[2019-05-03] MEDS ORDERED: MAGNESIUM CITRATE 300 ML BOTTLE PO PRN (23:22)
[2019-05-03] MEDS ORDERED: MENTHOL/PHENOL 1 EACH UD MM PRN (23:22)
[2019-05-03] MEDS ORDERED: NICOTINE POLACRILEX 2 MG GUM BUC PRN (23:22)
[2019-05-03] MEDS ORDERED: PATIENT'S OWN MEDICATION (NON-FORMULARY) (Insulin Glargine,Hum.Rec.Anlog [Basaglar Kwikpen SQ PRN (23:26)
[2019-05-04] MEDS ORDERED: METHADONE HCL 10 MG TABLET (FOR DETOX USE ONLY) PO ONE (00:45)
[2019-05-04] MEDS: cloNIDine HCL 0.1 MG TABLET PO PRN ×3 (00:54→17:42)
[2019-05-04] MEDS: chlordiazePOXIDE HCL 25 MG CAPSULE PO SCH ×3 (05:13→21:36)
--- NOTE | 2019-05-04 09:56 | PN ---
[facility] CIWA - CIWA Score Nausea/Vomitin-Mild Nausea/No Vomiting Muscle Tremors: 3 Anxiety: 3 Agitation: 3 Paroxysmal Sweats: No Perspiration Orientation: 0-Oriented Tacttile Disturbances: 1-Very Mild Itch/Numbness Auditory Disturbances: 0-None Visual Disturbances: 0-None Headache: 2-Mild CIWA-Ar Total Score: 13 [facility] COWS - Scale Resting Pulse: 0= MO 80 or Below Sweatin= No chills or Flushing Restless Observation: 1= Difficult to Sit Still Pupil Size: 0= Normal to Room Light Bone or Joint Aches: 1= Mild Discomfort Runny Nose/ Eye Tearin= Nasal Congestion GI Upset > 30mins: 2= Nausea/Diarrhea Tremor Observation of Outstretched Hands: 2= Slight Tremor Visible Yawning Observation: 1= 1-2x During Session Anxiety or Irritability: 2=Irritable/Anxious Goose Flesh Skin: 0=Smooth Skin COWS Score: 10 [facility] Progress Note (SOAP) Subjective: alert,irritabl,anxious,interrupted sleep,tremor,pain in the body and abck Objective: 05/04/19 09:55 Vital Signs Temperature 98.8 F 05/04/19 08:31 Pulse Rate 47 L 05/04/19 08:31 Respiratory Rate 17 05/04/19 08:31 Blood Pressure 177/71 H 05/04/19 08:31 O2 Sat by Pulse Oximetry (%) 05/04/19 09:55 labs pending Assessment: 05/04/19 09:55 withdrawal symptom Plan: continue detox methadone and librium regimen,bgm monitoring with insulin coverage
[2019-05-04] MEDS ORDERED: METHADONE HCL 5 MG TABLET (FOR DETOX USE ONLY) PO ONE (10:00)
[2019-05-04] MEDS ORDERED: PATIENT'S OWN MEDICATION (NON-FORMULARY) (Losartan/Hydrochlorothiazide [Losartan-Hctz 100- PO SCH (10:00)
[2019-05-04 10:03] LABS: HEMATOCRIT 41.2 % (35.4-49); HEMOGLOBIN 13.7 GM/dL (11.7-16.9); MCH 30.2 pg (25.7-33.7); MCHC 33.4 g/dl (32.0-35.9); MEAN CELL VOLUME 90.5 fl (80-96); MEAN PLT VOLUME 8.9 fl (7.5-11.1); PLATELET COUNT 142 K/MM3 (134-434); RBC 4.55 M/mm3 (4.00-5.60); RDW 13.1 % (11.9-15.9); WHITE BLOOD COUNT 4.7 K/mm3 (4.0-10.0)
--- NOTE | 2019-05-04 10:13 | CONSULT ---
[facility] Psychiatric Consult - Data Date of interview: 05/04/19 Psychiatric History: Patient was approached at bedside. Told medical underwriter:" you're a psychiatrist. No I don't want to talk"
[2019-05-04 10:17] LABS: ALBUMIN 3.3 g/dl (3.4-5.0); BILIRUBIN,TOTAL 0.9 mg/dL (0.2-1); BLOOD UREA NITROGEN 11.2 mg/dL (7-18); CALCIUM 8.4 mg/dL (8.5-10.1); CREATININE 0.8 mg/dL (0.55-1.3); POTASSIUM 3.8 mmol/L (3.5-5.1); TOT PROT 6.5 g/dl (6.4-8.2)
[2019-05-04] MEDS: TAMSULOSIN HCL 0.4 MG CAP PO SCH ×2 (10:28→21:36)
[2019-05-04] MEDS: ASPIRIN COATED 81 MG TABLET.EC PO SCH (10:28)
[2019-05-04] MEDS: LOSARTAN 50MG/HCTZ 12.5MG 1 TAB (FP) PO SCH (10:29)
[2019-05-04] MEDS: PRENATAL VITAMINS W/ FOLIC ACID TABLET (FP) PO SCH (10:30)
[2019-05-04] MEDS: NICOTINE 14 MG/24 HOURS TOPICAL PATCH TD SCH (10:30)
[2019-05-04] MEDS: FINASTERIDE 5 MG TABLET (FP) PO SCH (10:32)
--- NOTE | 2019-05-04 11:03 | EKG ---
Test Reason : Blood Pressure : / mmHG Vent. Rate : 048 BPM Atrial Rate : 048 BPM P-R Int : 242 ms QRS Dur : 094 ms QT Int : 476 ms P-R-T Axes : 059 029 054 degrees QTc Int : 425 ms SINUS BRADYCARDIA WITH 1ST DEGREE A-V BLOCK OTHERWISE NORMAL ECG WHEN COMPARED WITH ECG OF 16-MAR-2018 15:32, NO SIGNIFICANT CHANGE WAS FOUND Confirmed by Artem Cheng MD ([id number]) on 05/04/2019 11:02:48 AM Referred By: Dariel Quintanilla Confirmed By:Artem Cheng MD
[2019-05-04] MEDS: INSULIN (NOVOLOG) ASPART 100 UNITS/ML 10ML VIAL SQ SCH ×3 (11:32→21:38)
--- NOTE | 2019-05-04 12:35 | EKG ---
Test Reason : Blood Pressure : / mmHG Vent. Rate : 040 BPM Atrial Rate : 040 BPM P-R Int : 272 ms QRS Dur : 090 ms QT Int : 500 ms P-R-T Axes : 049 015 076 degrees QTc Int : 407 ms MARKED SINUS BRADYCARDIA WITH 1ST DEGREE A-V BLOCK ABNORMAL ECG WHEN COMPARED WITH ECG OF 03-MAY-2019 22:38, NO SIGNIFICANT CHANGE WAS FOUND Confirmed by Artem Cheng MD ([id number]) on 05/04/2019 12:35:17 PM Referred By: Dariel Quintanilla Confirmed By:Artem Cheng MD
[2019-05-04] MEDS ORDERED: PATIENT'S OWN MEDICATION (NON-FORMULARY) (Simvastatin [Simvastatin] 20 MG) PO SCH (22:00)
[2019-05-04] MEDS ORDERED: INSULIN (LEVEMIR) 100 UNITS/ML UNITS SQ SCH (22:00)
[2019-05-04] MEDS ORDERED: ATORVASTATIN CA 10 MG TABLET (FP) PO SCH (22:00)
[2019-05-04] MEDS ORDERED: MELATONIN 5 MG TABLETS PO SCH (22:00)
[2019-05-04] MEDS ORDERED: THIAMINE HCL 100 MG TABLET (FP) PO SCH (22:00)
[2019-05-05] MEDS ORDERED: chlordiazePOXIDE HCL 10 MG CAPSULE PO PRN
[2019-05-05] MEDS: chlordiazePOXIDE 5 MG CAPSULE PO SCH ×2 (05:16→12:30)
[2019-05-05] MEDS: INSULIN (NOVOLOG) ASPART 100 UNITS/ML 10ML VIAL SQ SCH ×2 (07:39→10:48)
[2019-05-05] MEDS ORDERED: METHADONE HCL 10 MG TABLET (FOR DETOX USE ONLY) PO ONE (10:00)
[2019-05-05] MEDS: TAMSULOSIN HCL 0.4 MG CAP PO SCH (10:45)
[2019-05-05] MEDS: LOSARTAN 50MG/HCTZ 12.5MG 1 TAB (FP) PO SCH (10:45)
[2019-05-05] MEDS: PRENATAL VITAMINS W/ FOLIC ACID TABLET (FP) PO SCH (10:45)
[2019-05-05] MEDS: ASPIRIN COATED 81 MG TABLET.EC PO SCH (10:45)
[2019-05-05] MEDS: NICOTINE 14 MG/24 HOURS TOPICAL PATCH TD SCH (10:48)
[2019-05-05] MEDS: FINASTERIDE 5 MG TABLET (FP) PO SCH (10:48)
--- NOTE | 2019-05-05 11:19 | PN ---
[facility] CIWA - CIWA Score Nausea/Vomitin-Mild Nausea/No Vomiting Muscle Tremors: 1-None Visible, but [place] Anxiety: 1-Mildly Anxious Agitation: 1-Slight > Activity Paroxysmal Sweats: No Perspiration Orientation: 0-Oriented Tacttile Disturbances: 0-None Auditory Disturbances: 0-None Visual Disturbances: 0-None Headache: 1-Very Mild CIWA-Ar Total Score: 5 S COWS - Scale Resting Pulse: 1= MD 81-100 Sweatin= Chills/Flushing Restless Observation: 1= Difficult to Sit Still Pupil Size: 0= Normal to Room Light Bone or Joint Aches: 1= Mild Discomfort Runny Nose/ Eye Tearin= None GI Upset > 30mins: 0= None Tremor Observation of Outstretched Hands: 0= None Yawning Observation: 0= None Anxiety or Irritability: 1=Feels Anxious/Irritable Goose Flesh Skin: 0=Smooth Skin COWS Score: 5 [facility] Progress Note (SOAP) Subjective: pt admitted for dual detox, no complaints today O: Vital Signs - 24 hr 05/04/19 05/04/19 05/04/19 12:40 16:31 22:16 Temperature 98.7 F 98 F 98.1 F Pulse Rate 44 L 86 51 L Respiratory 18 18 18 Rate Blood Pressure 152/74 172/74 H 155/78 05/05/19 05/05/19 05/05/19 00:34 03:35 05:10 Temperature 98.1 F Pulse Rate 90 Respiratory 18 18 18 Rate Blood Pressure 149/91 05/05/19 09:58 Temperature 97.9 F Pulse Rate 19 L Respiratory 18 Rate Blood Pressure 149/91 Laboratory Tests 05/04/19 05/04/19 05/04/19 07:45 07:45 07:45 WBC 4.7 RBC 4.55 Hgb 13.7 Hct 41.2 MCV 90.5 MCH 30.2 MCHC 33.4 RDW 13.1 Plt Count 142 MPV 8.9 Sodium 141 Potassium 3.8 Chloride 107 Carbon Dioxide 30 Anion Gap 5 L BUN 11.2 Creatinine 0.8 Est GFR (CKD-EPI)AfAm 112.53 Est GFR (CKD-EPI)NonAf 97.10 POC Glucometer Random Glucose 93 Calcium 8.4 L Total Bilirubin 0.9 AST 37 ALT 50 Alkaline Phosphatase 82 Total Protein 6.5 Albumin 3.3 L RPR Titer Nonreactive 05/04/19 05/04/19 05/04/19 11:29 16:46 21:25 WBC RBC Hgb Hct MCV MCH MCHC RDW Plt Count MPV Sodium Potassium Chloride Carbon Dioxide Anion Gap BUN Creatinine Est GFR (CKD-EPI)AfAm Est GFR (CKD-EPI)NonAf POC Glucometer 92 87 115 Random Glucose Calcium Total Bilirubin AST ALT Alkaline Phosphatase Total Protein Albumin RPR Titer 05/05/19 05/05/19 05:19 10:42 WBC RBC Hgb Hct MCV MCH MCHC RDW Plt Count MPV Sodium Potassium Chloride Carbon Dioxide Anion Gap BUN Creatinine Est GFR (CKD-EPI)AfAm Est GFR (CKD-EPI)NonAf POC Glucometer 119 138 Random Glucose Calcium Total Bilirubin AST ALT Alkaline Phosphatase Total Protein Albumin RPR Titer a/p: OUD/AUD- continue detox protocols, 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
[2019-05-05] MEDS ORDERED: cloNIDine HCL 0.1 MG TABLET PO PRN (12:30)
[2019-05-05 14:22] VITALS: BP 155/75; PULSE 51; TEMP 98
--- NOTE | 2019-05-05 16:04 | DS ---
[facility] Detox Discharge Summary Admission Date: 05/03/19 Discharge Date: 05/05/19 - History Present History: Opioid Dependence Pertinent Past History: Pt states he just wants to leave. Offered pt additional medication. "I just want to leave". Pt states he wants to go home and sleep. pt states he does not want MAT. He has a narcan kit at home. Pt has all the medications at home and has PCP- Dr. Mckeon- f/u scheduled for next Friday - Physical Exam Results Vital Signs: Vital Signs Temperature 98.0 F 05/05/19 14:22 Pulse Rate 51 L 05/05/19 14:22 Respiratory Rate 18 05/05/19 14:22 Blood Pressure 155/75 05/05/19 14:22 O2 Sat by Pulse Oximetry (%) - Medication Discharge Medications: Ambulatory Orders Aspirin [Aspirin EC] 81 mg PO DAILY 03/16/18 Docusate Sodium 100 mg PO TID 03/16/18 Quetiapine Fumarate [Seroquel -] 100 mg PO HS 03/16/18 Simvastatin 20 mg PO HS 03/16/18 Tamsulosin HCl 0.4 mg PO BID 03/16/18 Losartan/Hydrochlorothiazide [Losartan-Hctz 100-25 mg Tab] 1 each PO DAILY 03/18/18 Atorvastatin Ca [Lipitor] 10 mg PO HS #14 tablet 03/19/18 Clonidine HCl 0.1 mg PO DAILY PRN #14 tablet 03/19/18 Finasteride 5 mg PO DAILY #14 tablet 03/19/18 Insulin Glargine,Hum.rec.anlog [Ignacioaglhimanshu Vickers U-100] 30 unit SQ AC PRN 05/03/19
[2019-05-06] MEDS ORDERED: chlordiazePOXIDE HCL 10 MG CAPSULE PO SCH (05:00)
[2019-05-06] MEDS ORDERED: METHADONE HCL 5 MG TABLET (FOR DETOX USE ONLY) PO ONE (06:00)
[2019-05-07] MEDS ORDERED: chlordiazePOXIDE HCL 10 MG CAPSULE PO ONE (05:00)
== END 2019-05-05 16:57 | disposition left against medical advice (07) | DRG 770 ==
LOC: YASAS 19:40 → Y6N 22:52
PROVIDERS: ADMIT Allergy & Immunology; ATTEND Allergy & Immunology
PROC: HZ2ZZZZ Detoxification Services for Substance Abuse Treatment (ICD-10-PCS; principal; 2019-05-03)
DX: F11.23 Opioid dependence with withdrawal (principal); F10.230 Alcohol dependence with withdrawal, uncomplicated; F14.20 Cocaine dependence, uncomplicated; F12.20 Cannabis dependence, uncomplicated; F13.230 Sedative, hypnotic or anxiolytic dependence with withdrawal, uncomplicated; F17.210 Nicotine dependence, cigarettes, uncomplicated; F32.9 Major depressive disorder, single episode, unspecified; I11.0 Hypertensive heart disease with heart failure; E11.9 Type 2 diabetes mellitus without complications; I50.9 Heart failure, unspecified; N40.0 Benign prostatic hyperplasia without lower urinary tract symptoms; E78.5 Hyperlipidemia, unspecified; K21.9 Gastro-esophageal reflux disease without esophagitis; M54.32 Sciatica, left side; Z98.61 Coronary angioplasty status
CPT/HCPCS: 36415; 80053; 82962; 85027; 86593; 93005; 93010; J0735; Q0162

== ENCOUNTER 2019-11-02 17:36 | Inpatient (IN) | payer OTHER ==
[2019-11-02 19:32] VITALS: BMI 30.3
--- NOTE | 2019-11-02 19:44 | HP ---
COWS - Scale Resting Pulse: 0= MS 80 or Below Sweatin=Flushed/Facial Moisture Restless Observation: 1= Difficult to Sit Still Pupil Size: 1= Pupils >than Normal Bone or Joint Aches: 2= Severe Diffuse Aches Runny Nose/ Eye Tearin= Nasal Congestion GI Upset > 30mins: 2= Nausea/Diarrhea Tremor Observation: 1= Tremor [place], Not Seen Yawning Observation: 0= None Anxiety or Irritability: 2=Irritable/Anxious Goose Flesh Skin: 0=Smooth Skin COWS Score: 12 CIWA Score Nausea/Vomitin Muscle Tremors: 3 Anxiety: 3 Agitation: 1-Slight > Activity Paroxysmal Sweats: 1-Minimal Palms Moist Orientation: 0-Oriented Tacttile Disturbances: 1-Very Mild Itch/Numbness Auditory Disturbances: 0-None Visual Disturbances: 0-None Headache: 3-Moderate CIWA-Ar Total Score: 15 - Admission Criteria OASAS Guidelines: Admission for Medically Managed Detox: Requires at least one of the followin. CIWA greater than 12 2. Seizures within the past 24 hours 3. Delirium tremens within the past 24 hours 4. Hallucinations within the past 24 hours 5. Acute intervention needed for co occurring medical disorder 6. Acute intervention needed for co occurring psychiatric disorder 7. Severe withdrawal that cannot be handled at a lower level of care (continued vomiting, continued diarrhea, abnormal vital signs) requiring intravenous medication and/or fluids 8. Admitting History and Physical - Admission History of Present Illness: Patient is a 59 y.o. M PMHx of CHF, HTN, HLD, Diabetes here for detox. Pt was examined in the room in no acute distress. Substance use consists of heroin 15 bags a day IV and intranasal no overdoses. Alcohol 1 pint henessy and 6 12oz beers a day no seizures, no blackouts. 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 Cardiovascular: Yes: HTN, Hyperlipdemia Gastrointestinal: No: GERD, GI Bleed Hepatobiliary: No: Hepatitis A, Hepatitis B, Hepatitis C Infectious Disease: No: HIV, STD's - Past Surgical History Past Surgical History: Yes: Prostatectomy - Smoking History Smoking history: Current every day smoker Have you smoked in the past 12 months: Yes Aproximately how many cigarettes per day: 7 - Alcohol/Substance Use Hx Alcohol Use: Yes History of Substance Use: reports: Heroin - Social History Usual Living Arrangement: Yes: Alone ADL: Independent Occupation: s[employer] History of Recent Travel: No Admission ROS [facility] Allergies/Adverse Reactions: Allergies Allergy/AdvReac Type Severity Reaction Status Date / Time No Known Drug Allergies Allergy Verified 11/03/19 11:08 apple juice AdvReac Uncoded 11/02/19 21:37 History of Present Illness: Patient is a 59 y.o. M PMHx of CHF, HTN, HLD, Diabetes here for detox. Pt was examined in the room in no acute distress. Substance use consists of heroin 15 bags a day IV and intranasal no overdoses. Alcohol 1 pint henessy and 6 12oz beers a day no seizures, no blackouts. Exam Limitations: No Limitations - Ebola screening Have you traveled outside of the country in the last 21 days: No Have you had contact with anyone from an Ebola affected area: No Have you been sick,other than usual withdrawal symptoms: No Do you have a fever: No - Review of Systems Constitutional: Chills EENT: denies: Blurred Vision, Double Vision Respiratory: denies: Cough, Shortness of Breath Cardiac: denies: Chest Pain, Lightheadedness GI: reports: Diarrhea, Nausea. denies: Constipated, Vomiting : denies: Burning, Dysuria Musculoskeletal: reports: Muscle Pain Neuro: reports: Headache. denies: Dizziness Hematology: denies: Easy Bleeding Psychiatric: reports: Judgement Intact, Mood/Affect Appropiate, Orientated x3, Anxious Patient History - Patient Medical History Hx Anemia: No Hx Asthma: No Hx Chronic Obstructive Pulmonary Disease (COPD): No Hx Cancer: No Hx Cardiac Disorders: Yes (HTN) Hx Congestive Heart Failure: Yes Hx Hypertension: Yes Hx Hypercholesterolemia: Yes Hx Pacemaker: No HX Cerebrovascular Accident: No Hx Seizures: No Hx Dementia: No Hx Diabetes: Yes Hx Gastrointestinal Disorders: Yes (ACID REFLUX) Hx Liver Disease: No Hx Genitourinary Disorders: Yes (BPH) Hx Sexually Transmitted Disorders: No Hx Renal Disease (ESRD): No Hx Thyroid Disease: No Hx Human Immunodeficiency Virus (HIV): No (Unknown status. refue to be tested) Hx Hepatitis C: No Hx Depression: Yes (Nt on medication) Hx Suicide Attempt: No Hx Bipolar Disorder: No Hx Schizophrenia: No - Patient Surgical History Past Surgical History: Yes Hx Neurologic Surgery: No Hx Cataract Extraction: No Hx Cardiac Surgery: Yes ( CARDIAC CATHETERIZATION T AGE 10) Hx Lung Surgery: No Hx Breast Surgery: No Hx Breast Biopsy: No Hx Abdominal Surgery: No Hx Appendectomy: No Hx Cholecystectomy: No Hx Genitourinary Surgery: No Hx Section: No Hx Orthopedic Surgery: No Other Surgical History: PROSTATE SURGERY 2017, Anesthesia Reaction: No - PPD History Date: 03/18/18 - Smoking Cessation Smoking history: Current every day smoker Have you smoked in the past 12 months: Yes Aproximately how many cigarettes per day: 7 Hx Chewing Tobacco Use: No Initiated information on smoking cessation: Yes 'Breaking Loose' booklet given: 11/03/19 Admission Physical Exam [facility] - Vital Signs Vital Signs: Vital Signs - 24 hr 11/02/19 19:30 Temperature 97.7 F Pulse Rate 51 L Respiratory 20 Rate Blood Pressure 191/69 H - Physical General Appearance: Yes: Within Normal Limits, No Apparent Distress, Nourished, Appropriately Dressed HEENTM: Yes: Microcephalic Respiratory: Yes: Within Normal Limits, Normal Breath Sounds, No Respiratory Distress, No Accessory Muscle Use Cardiology: Yes: Within Normal Limits, Regular Rhythm, Regular Rate Abdominal: Yes: Within Normal Limits, Normal Bowel Sounds, Non Tender, Flat, Soft Back: Yes: Within Normal Limits, Normal Inspection. No: CVA Tenderness Musculoskeletal: Yes: Within Normal Limits, Gait Steady, Pelvis Stable Neurological: Yes: Within Normal Limits, Fully Oriented, Alert, Normal Mood/Affect, Normal Response Integumentary: Yes: Within Normal Limits, Normal Color, Warm - Diagnostic (1) Alcohol dependence with uncomplicated withdrawal Current Visit: No Status: Acute (2) CHF (congestive heart failure) Current Visit: No Status: Acute Qualifiers: Heart failure type: unspecified Heart failure chronicity: unspecified Qualified Code(s): I50.9 - Heart failure, unspecified (3) BPH (benign prostatic hyperplasia) Current Visit: No Status: Chronic Qualifiers: Lower urinary tract symptom presence: unspecified whether lower urinary tract symptoms present Qualified Code(s): N40.0 - Benign prostatic hyperplasia without lower urinary tract symptoms (4) Depression Current Visit: No Status: Chronic Qualifiers: Depression Type: unspecified Qualified Code(s): F32.9 - Major depressive disorder, single episode, unspecified (5) Diabetes 1.5, managed as type 2 Current Visit: No Status: Chronic (6) GERD (gastroesophageal reflux disease) Current Visit: No Status: Chronic Qualifiers: Esophagitis presence: without esophagitis Qualified Code(s): K21.9 - Gastro-esophageal reflux disease without esophagitis Cleared for Admission [facility] - Detox or Rehab [facility] Level of Care: Medically Managed Detox Regimen/Protocol: Methadone/Librium Breathalyzer - Breathalyzer Breathalyzer: 0 Vital Signs - Vital Signs Vital signs refused: No Temperature: 97.7 F Pulse Rate: 51 Respiratory Rate: 20 Blood Pressure: 191/69 - Height Height: 1.96 m - Weight Weight: 116.12 kg - BMI Body Mass Index (BMI): 30.3 Urine Drug Screen - Test Device Lot number: [id number] Expiration date: 09/27/21 - Control Is test valid?: Yes - Results Drug screen NEGATIVE: No Urine drug screen results: THC-Marijuana, FEN-Fentanyl, MOP-Opiates, BZO- Benzodiazepines Inpatient Rehab Admission - Rehab Decision to Admit Inpatient rehab admission?: No
[2019-11-02] MEDS ORDERED: METHOCARBAMOL 500 MG TABLET PO PRN (19:54)
[2019-11-02] MEDS ORDERED: MAG HYDROX/AL HYDROX/SIMETH 30 ML UNIT-DOSE CUP PO PRN (19:54)
[2019-11-02] MEDS ORDERED: MAGNESIUM CITRATE 300 ML BOTTLE PO PRN (19:54)
[2019-11-02] MEDS ORDERED: ACETAMINOPHEN 325 MG TABLET (FP) PO PRN ×2 (19:54)
[2019-11-02] MEDS ORDERED: chlordiazePOXIDE HCL 25 MG CAPSULE PO PRN (19:54)
[2019-11-02] MEDS ORDERED: BISMUTH SUBSALICYLATE 524 MG/30 ML UD PO PRN (19:54)
[2019-11-02] MEDS ORDERED: NICOTINE POLACRILEX 2 MG GUM BUC PRN (19:54)
[2019-11-02] MEDS ORDERED: cloNIDine HCL 0.1 MG TABLET PO PRN (19:54)
[2019-11-02] MEDS ORDERED: METHADONE HCL 10 MG TABLET (FOR DETOX USE ONLY) PO ONE (19:54)
[2019-11-02] MEDS ORDERED: IBUPROFEN 400 MG TABLET (FP) PO PRN (19:54)
[2019-11-02] MEDS ORDERED: MAGNESIUM HYDROX 2400MG/30ML ORAL SUSPENSION 30 ML CUP PO PRN (19:54)
[2019-11-02] MEDS ORDERED: ONDANSETRON *ODT* 4 MG TABLET SL PRN (19:54)
[2019-11-02] MEDS ORDERED: MENTHOL/PHENOL 1 EACH UD MM PRN (19:54)
[2019-11-02] MEDS ORDERED: cloNIDine HCL 0.1 MG TABLET PO ONE (19:56)
[2019-11-02] MEDS: THIAMINE HCL 100 MG TABLET (FP) PO SCH (21:16)
[2019-11-02] MEDS: hydrOXYzine PAMOATE 25 MG CAPSULE (FP) PO SCH (21:18)
[2019-11-02] MEDS: chlordiazePOXIDE HCL 25 MG CAPSULE PO SCH (22:44)
[2019-11-02] MEDS: MELATONIN 5 MG TABLETS PO SCH (22:47)
[2019-11-03] MEDS: hydrOXYzine PAMOATE 25 MG CAPSULE (FP) PO SCH ×5 (05:45→22:39)
[2019-11-03] MEDS: chlordiazePOXIDE HCL 25 MG CAPSULE PO SCH ×4 (05:45→22:40)
[2019-11-03] MEDS ORDERED: METHADONE HCL 10 MG TABLET (FOR DETOX USE ONLY) ONE (09:49)
[2019-11-03] MEDS ORDERED: METHADONE HCL 5 MG TABLET (FOR DETOX USE ONLY) ONE (09:49)
[2019-11-03] MEDS ORDERED: METHADONE (DETOX) 20 MG, METHADONE (DETOX) 5 MG PO ONE (10:00)
[2019-11-03] MEDS: PRENATAL VITAMINS W/ FOLIC ACID TABLET (FP) PO SCH (10:15)
[2019-11-03] MEDS: NICOTINE 7 MG/24 HOURS TOPICAL PATCH TD SCH (10:18)
[2019-11-03 10:28] LABS: HEMATOCRIT 42.3 % (35.4-49); HEMOGLOBIN 13.9 GM/dL (11.7-16.9); MCH 29.6 pg (25.7-33.7); MCHC 32.8 g/dl (32.0-35.9); MEAN CELL VOLUME 90.1 fl (80-96); MEAN PLT VOLUME 8.8 fl (7.5-11.1); PLATELET COUNT 177 K/MM3 (134-434); RBC 4.69 M/mm3 (4.00-5.60); RDW 13.2 % (11.9-15.9)
[2019-11-03 10:36] LABS: ALBUMIN 3.3 g/dl (3.4-5.0); BILIRUBIN,TOTAL 1.2 mg/dL (0.2-1); BLOOD UREA NITROGEN 9.8 mg/dL (7-18); CALCIUM 8.8 mg/dL (8.5-10.1); CREATININE 0.8 mg/dL (0.55-1.3); POTASSIUM 3.9 mmol/L (3.5-5.1); TOT PROT 6.9 g/dl (6.4-8.2)
--- NOTE | 2019-11-03 10:58 | PN ---
S CIWA - CIWA Score Nausea/Vomitin-Mild Nausea/No Vomiting Muscle Tremors: 3 Anxiety: 3 Agitation: 0-Normal Activity Paroxysmal Sweats: 1-Minimal Palms Moist Orientation: 0-Oriented Tacttile Disturbances: 0-None Auditory Disturbances: 0-None Visual Disturbances: 1-Very Mild Sensitivity Headache: 2-Mild CIWA-Ar Total Score: 11 S COWS - Scale Resting Pulse: 0= [place] 80 or Below Sweatin= Chills/Flushing Restless Observation: 0= Sits Still Pupil Size: 1= Pupils >than Normal Bone or Joint Aches: 1= Mild Discomfort Runny Nose/ Eye Tearin= Nasal Congestion GI Upset > 30mins: 2= Nausea/Diarrhea Tremor Observation of Outstretched Hands: 2= Slight Tremor Visible Yawning Observation: 1= 1-2x During Session Anxiety or Irritability: 2=Irritable/Anxious Goose Flesh Skin: 0=Smooth Skin COWS Score: 11 [facility] Progress Note (SOAP) Subjective: 59 years old male was admitted on 11/02/19 for alcohol and opiate withdrawal sx management treating with librium and methadone detox regiments feels tired prefers to stay in bed today limited conversation with staff Objective: 11/03/19 10:46 Vital Signs - 24 hr 11/02/19 11/02/19 11/02/19 19:30 19:51 20:16 Temperature 97.7 F 97.7 F 97.7 F Pulse Rate 51 L 51 L 51 L Respiratory 20 20 20 Rate Blood Pressure 191/69 H 191/69 H 191/69 H O2 Sat by Pulse Oximetry (%) 11/02/19 11/02/19 11/03/19 21:00 23:25 06:35 Temperature 97.5 F L 97.4 F L Pulse Rate 53 L 47 L 82 Respiratory 18 18 18 Rate Blood Pressure 239/98 H 197/85 H 187/85 H O2 Sat by Pulse 98 100 Oximetry (%) 11/03/19 08:44 Temperature 97.8 F Pulse Rate 41 L Respiratory 18 Rate Blood Pressure 186/77 H O2 Sat by Pulse Oximetry (%) Laboratory Tests 11/03/19 11/03/19 11/03/19 06:31 07:50 07:50 WBC 6.0 RBC 4.69 Hgb 13.9 Hct 42.3 MCV 90.1 MCH 29.6 MCHC 32.8 RDW 13.2 Plt Count 177 D MPV 8.8 Sodium 141 Potassium 3.9 Chloride 106 Carbon Dioxide 29 Anion Gap 6 L BUN 9.8 Creatinine 0.8 Est GFR (CKD-EPI)AfAm 111.74 Est GFR (CKD-EPI)NonAf 96.41 POC Glucometer 88 Random Glucose 89 Calcium 8.8 Total Bilirubin 1.2 H AST 43 H ALT 48 Alkaline Phosphatase 89 Total Protein 6.9 Albumin 3.3 L bp elevation 11/03/19 10:58 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
[2019-11-03] MEDS: amLODIPine BESYLATE 10 MG TABLET (FP) PO SCH (11:59)
[2019-11-03] MEDS: LOSARTAN 50MG/HCTZ 12.5MG 1 TAB (FP) PO SCH (11:59)
[2019-11-03] MEDS: INSULIN SLIDING SCALE (NOVOLOG) 1 VIAL SQ SCH ×2 (16:48→22:44)
[2019-11-03] MEDS: FINASTERIDE 5 MG TABLET (FP) PO SCH (17:24)
[2019-11-03] MEDS ORDERED: cloNIDine HCL 0.1 MG TABLET PO PRN (19:54)
[2019-11-03] MEDS: ATORVASTATIN CA 10 MG TABLET (FP) PO SCH (22:39)
[2019-11-03] MEDS: THIAMINE HCL 100 MG TABLET (FP) PO SCH (22:39)
[2019-11-03] MEDS: MELATONIN 5 MG TABLETS PO SCH (22:39)
[2019-11-03] MEDS: TAMSULOSIN HCL 0.4 MG CAP PO SCH (22:39)
[2019-11-04] MEDS: hydrOXYzine PAMOATE 25 MG CAPSULE (FP) PO SCH ×5 (06:27→23:06)
[2019-11-04] MEDS: chlordiazePOXIDE HCL 25 MG CAPSULE PO SCH ×4 (06:27→23:06)
[2019-11-04] MEDS: INSULIN SLIDING SCALE (NOVOLOG) 1 VIAL SQ SCH ×4 (06:47→23:09)
[2019-11-04] MEDS ORDERED: METHADONE HCL 10 MG TABLET (FOR DETOX USE ONLY) PO ONE (10:00)
[2019-11-04] MEDS: PRENATAL VITAMINS W/ FOLIC ACID TABLET (FP) PO SCH (10:39)
[2019-11-04] MEDS: NICOTINE 7 MG/24 HOURS TOPICAL PATCH TD SCH (10:40)
[2019-11-04] MEDS: amLODIPine BESYLATE 10 MG TABLET (FP) PO SCH (10:40)
[2019-11-04] MEDS: LOSARTAN 50MG/HCTZ 12.5MG 1 TAB (FP) PO SCH (10:40)
[2019-11-04] MEDS: TAMSULOSIN HCL 0.4 MG CAP PO SCH ×2 (10:40→23:06)
[2019-11-04] MEDS: FINASTERIDE 5 MG TABLET (FP) PO SCH (10:40)
[2019-11-04] MEDS: ASPIRIN COATED 81 MG TABLET.EC PO SCH (11:05)
--- NOTE | 2019-11-04 15:14 | PN ---
S CIWA - CIWA Score Nausea/Vomitin Muscle Tremors: 2 Anxiety: 2 Agitation: 2 Paroxysmal Sweats: No Perspiration Orientation: 0-Oriented Tacttile Disturbances: 1-Very Mild Itch/Numbness Auditory Disturbances: 0-None Visual Disturbances: 0-None Headache: 2-Mild CIWA-Ar Total Score: 11 [facility] COWS - Scale Resting Pulse: 0= [place] 80 or Below Sweatin= No chills or Flushing Restless Observation: 0= Sits Still Pupil Size: 0= Normal to Room Light Bone or Joint Aches: 2= Severe Diffuse Aches Runny Nose/ Eye Tearin= Nasal Congestion GI Upset > 30mins: 1= Stomach Cramp Tremor Observation of Outstretched Hands: 2= Slight Tremor Visible Yawning Observation: 1= 1-2x During Session Anxiety or Irritability: 2=Irritable/Anxious Goose Flesh Skin: 0=Smooth Skin COWS Score: 9 [facility] Progress Note (SOAP) Subjective: alert,irritable,anxious,interrupted sleep,tremor,pain in the body and back,n ausea Objective: 11/04/19 15:12 Vital Signs Temperature 97.6 F 11/04/19 12:30 Pulse Rate 79 11/04/19 12:30 Respiratory Rate 20 11/04/19 12:30 Blood Pressure 157/87 11/04/19 12:30 O2 Sat by Pulse Oximetry (%) 97 11/04/19 12:30 11/04/19 15:12 Laboratory Last Values WBC 6.0 K/mm3 (4.0-10.0) 11/03/19 07:50 RBC 4.69 M/mm3 (4.00-5.60) 11/03/19 07:50 Hgb 13.9 GM/dL (11.7-16.9) 11/03/19 07:50 Hct 42.3 % (35.4-49) 11/03/19 07:50 MCV 90.1 fl (80-96) 11/03/19 07:50 MCH 29.6 pg (25.7-33.7) 11/03/19 07:50 MCHC 32.8 g/dl (32.0-35.9) 11/03/19 07:50 RDW 13.2 % (11.9-15.9) 11/03/19 07:50 Plt Count 177 K/MM3 (134-434) D 11/03/19 07:50 MPV 8.8 fl (7.5-11.1) 11/03/19 07:50 Sodium 141 mmol/L (136-145) 11/03/19 07:50 Potassium 3.9 mmol/L (3.5-5.1) 11/03/19 07:50 Chloride 106 mmol/L (98-107) 11/03/19 07:50 Carbon Dioxide 29 mmol/L (21-32) 11/03/19 07:50 Anion Gap 6 MMOL/L (8-16) L 11/03/19 07:50 BUN 9.8 mg/dL (7-18) 11/03/19 07:50 Creatinine 0.8 mg/dL (0.55-1.3) 11/03/19 07:50 Est GFR (CKD-EPI)AfAm 111.74 11/03/19 07:50 Est GFR (CKD-EPI)NonAf 96.41 11/03/19 07:50 POC Glucometer 176 UNITS (80-120) 11/04/19 11:39 Random Glucose 89 mg/dL (74-106) 11/03/19 07:50 Calcium 8.8 mg/dL (8.5-10.1) 11/03/19 07:50 Total Bilirubin 1.2 mg/dL (0.2-1) H 11/03/19 07:50 AST 43 U/L (15-37) H 11/03/19 07:50 ALT 48 U/L (13-61) 11/03/19 07:50 Alkaline Phosphatase 89 U/L (45-117) 11/03/19 07:50 Total Protein 6.9 g/dl (6.4-8.2) 11/03/19 07:50 Albumin 3.3 g/dl (3.4-5.0) L 11/03/19 07:50 Syphilis Serology Non-reactive (NONREACTIVE) 11/03/19 07:50 COVID-19 (IRENE) Not detected (Not Detected) 11/02/19 20:35 Assessment: 11/04/19 15:13 withdrawal symptom Plan: continue detox methadone and librium regimen,bgm monitoring with insulin coverage sliding scale
[2019-11-04] MEDS: MELATONIN 5 MG TABLETS PO SCH (23:06)
[2019-11-04] MEDS: ATORVASTATIN CA 10 MG TABLET (FP) PO SCH (23:06)
[2019-11-04] MEDS: THIAMINE HCL 100 MG TABLET (FP) PO SCH (23:06)
[2019-11-05] MEDS ORDERED: chlordiazePOXIDE HCL 10 MG CAPSULE PO PRN
[2019-11-05] MEDS: INSULIN SLIDING SCALE (NOVOLOG) 1 VIAL SQ SCH ×2 (06:13→10:56)
[2019-11-05] MEDS: chlordiazePOXIDE HCL 10 MG CAPSULE PO SCH ×2 (06:14→10:56)
[2019-11-05] MEDS: hydrOXYzine PAMOATE 25 MG CAPSULE (FP) PO SCH ×2 (06:14→10:55)
[2019-11-05 07:18] VITALS: BP 115/73; PULSE 76; TEMP 96.9
[2019-11-05] MEDS ORDERED: METHADONE HCL 10 MG TABLET (FOR DETOX USE ONLY) ONE (09:00)
[2019-11-05] MEDS ORDERED: METHADONE HCL 5 MG TABLET (FOR DETOX USE ONLY) ONE (09:01)
--- NOTE | 2019-11-05 09:13 | DS ---
[facility] Detox Discharge Summary Admission Date: 11/02/19 Discharge Date: 11/05/19 (Pt requests early discharge) - History Present History: Alcohol Dependence - Physical Exam Results Vital Signs: Vital Signs Temperature 96.9 F L 11/05/19 05:17 Pulse Rate 76 11/05/19 05:17 Respiratory Rate 20 11/05/19 05:17 Blood Pressure 115/73 11/05/19 05:17 O2 Sat by Pulse Oximetry (%) 99 11/05/19 05:17 Pertinent Admission Physical Exam Findings: Patient is a 59 y.o. M PMHx of CHF, HTN, HLD, Diabetes here for detox. Pt was examined in the room in no acute distress. Substance use consists of heroin 15 bags a day IV and intranasal no overdoses. Alcohol 1 pint henessy and 6 12oz beers a day no seizures, no blackouts. 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 Cardiovascular: Yes: HTN, Hyperlipdemia Gastrointestinal: No: GERD, GI Bleed Hepatobiliary: No: Hepatitis A, Hepatitis B, Hepatitis C Infectious Disease: No: HIV, STD's - Past Surgical History Past Surgical History: Yes: Prostatectomy - Smoking History Smoking history: Current every day smoker Have you smoked in the past 12 months: Yes Aproximately how many cigarettes per day: 7 Home Medication List Medication Instructions Recorded Confirmed Type Aspirin [Aspirin EC] 81 mg PO DAILY 03/16/18 11/02/19 History Docusate Sodium 100 mg PO TID 03/16/18 11/02/19 History Quetiapine Fumarate [Seroquel -] 100 mg PO HS 03/16/18 11/02/19 History Simvastatin 20 mg PO HS 03/16/18 11/02/19 History Tamsulosin HCl 0.4 mg PO BID 03/16/18 11/02/19 History Losartan/Hydrochlorothiazide 1 each PO DAILY 03/18/18 11/02/19 History [Losartan-Hctz 100-25 mg Tab] Insulin Glargine,Hum.rec.anlog 30 unit SQ AC PRN 05/03/19 11/02/19 History [Basaglar Kwikpen U-100] Amlodipine Besylate [Norvasc -] 10 mg PO 11/03/19 History Active Medications Generic Name Dose Route Start Last Admin Trade Name Freq PRN Reason Stop Dose Admin Acetaminophen 650 mg 11/02/19 19:54 Tylenol - PO Q6H PRN PAIN LEVEL 4 - 6 Acetaminophen 650 mg 11/02/19 19:54 Tylenol - PO Q6H PRN FEVER Al Hydroxide/Mg Hydroxide 30 ml 11/02/19 19:54 Mylanta Oral Suspension - PO Q6H PRN DYSPEPSIA Amlodipine Besylate 10 mg 11/03/19 11:30 11/04/19 10:40 Norvasc - PO 10 mg DAILY FILOMENA Administration Aspirin 81 mg 11/04/19 11:00 11/04/19 11:05 Ecotrin - PO Not Given DAILY FILOMENA Atorvastatin Calcium 10 mg 11/03/19 22:00 11/04/19 23:06 Lipitor - PO 10 mg HS FILOMENA Administration Bismuth Subsalicylate 524 mg 11/02/19 19:54 Pepto-Bismol - PO Q1H PRN DIARRHEA Chlordiazepoxide HCl 10 mg 11/05/19 05:00 11/05/19 06:14 Librium - PO 11/05/19 23:01 10 mg [id number] FILOMENA Administration Chlordiazepoxide HCl 10 mg 11/06/19 05:00 Librium - PO 11/06/19 17:01 Q12H FILOMENA Chlordiazepoxide HCl 10 mg 11/05/19 00:00 Librium - PO 11/06/19 00:00 Q4H PRN WITHDRAWAL(CONT SUBST) Chlordiazepoxide HCl 10 mg 11/07/19 05:00 Librium - PO 11/07/19 05:01 ONCE@0500 ONE Clonidine 0.1 mg 11/03/19 19:54 11/03/19 22:39 Catapres - PO 11/06/19 23:59 0.1 mg Q6H PRN Administration HYPERTENSION Eucalyptus/Menthol/Phenol/Sorbitol 1 each 11/02/19 19:54 Cepastat Lozenge - MM 11/08/19 19:54 Q4H PRN SORE THROAT Finasteride 5 mg 11/03/19 16:00 11/04/19 10:40 Proscar - PO 5 mg DAILY FILOMENA Administration HCTZ/Losartan Potassium 2 tab 11/03/19 11:00 11/04/19 10:40 Hyzaar - PO 2 tab DAILY FILOMENA Administration Hydroxyzine Pamoate 25 mg 11/02/19 22:00 11/05/19 06:14 Vistaril - PO 11/08/19 19:54 25 mg Q4HWA FILOMENA Administration Ibuprofen 400 mg 11/02/19 19:54 Motrin - PO Q6H PRN PAIN LEVEL 1 - 3 Insulin Aspart 1 vial 11/03/19 16:30 11/05/19 06:13 Novolog Vial Sliding Scale - SQ Not Given ACHS COUNTS INCLUDE 234 BEDS AT [facility] Protocol Magnesium Citrate 300 ml 11/02/19 19:54 Citroma - PO Q48H PRN CONSTIPATION Magnesium Hydroxide 30 ml 11/02/19 19:54 Milk Of Magnesia - PO PRN PRN CONSTIPATION Melatonin 5 mg 11/02/19 22:00 11/04/19 23:06 Melatonin PO 5 mg HS FILOMENA Administration Methadone HCl 5 mg 11/07/19 06:00 Dolophine - PO 11/07/19 06:01 ONCE@0600 ONE Methadone HCl 10 mg 11/06/19 10:00 Dolophine - PO 11/06/19 10:01 ONCE ONE Methadone HCl 10 mg/ Methadone 15 mg 11/05/19 10:00 HCl 5 mg PO 11/05/19 10:01 ONCE ONE Methocarbamol 500 mg 11/02/19 19:54 11/03/19 10:15 Robaxin - PO 11/08/19 19:54 500 mg Q6H PRN Administration MUSCLE SPASMS Nicotine 7 mg 11/03/19 10:00 11/04/19 10:40 Nicoderm Patch - TD Not Given DAILY FILOMENA Nicotine Polacrilex 2 mg 11/02/19 19:54 Nicorette Gum - BUC Q2H PRN NICOTINE REPLACEMENT RX Ondansetron HCl 4 mg 11/02/19 19:54 Zofran Odt - SL Q8H PRN Nausea/Vomiting Multivit/Folic Acid/Iron 1 tab 11/03/19 10:00 11/04/19 10:39 Vitamins (Sjr) - PO 1 tab DAILY FILOMENA Administration Tamsulosin HCl 0.4 mg 11/03/19 22:00 11/04/19 23:06 Flomax - PO 0.4 mg BID FILOMENA Administration Thiamine HCl 100 mg 11/02/19 22:00 11/04/19 23:06 Vitamin B1 - PO 100 mg HS FILOMENA Administration PE Gnl: WDWN, in no distress MS: nl mentation Motor: moves limbs well Coord: nl Gait steady Other: no signs or symptoms of withdrawal - Treatment Hospital Course: Detox Protocol Followed, Detoxed Safely, Responded well, Discharged Condition Good Patient has Accepted a Rehab Referral to: Pt will be given after care information by counselor Cruz. - Medication Discharge Medications: Ambulatory Orders Aspirin [Aspirin EC] 81 mg PO DAILY 03/16/18 Docusate Sodium 100 mg PO TID 03/16/18 Quetiapine Fumarate [Seroquel -] 100 mg PO HS 03/16/18 Simvastatin 20 mg PO HS 03/16/18 Tamsulosin HCl 0.4 mg PO BID 03/16/18 Losartan/Hydrochlorothiazide [Losartan-Hctz 100-25 mg Tab] 1 each PO DAILY 03/18/18 Atorvastatin Ca [Lipitor] 10 mg PO HS #14 tablet 03/19/18 Clonidine HCl 0.1 mg PO DAILY PRN #14 tablet 03/19/18 Finasteride 5 mg PO DAILY #14 tablet 03/19/18 Insulin Glargine,Hum.rec.anlog [Basaglar Kwikpen U-100] 30 unit SQ AC PRN 05/03/19 Amlodipine Besylate [Norvasc -] 10 mg PO 11/03/19 - Diagnosis (1) Alcohol dependence with uncomplicated withdrawal Current Visit: No Status: Acute (2) Opioid dependence with withdrawal Current Visit: No Status: Acute (3) DM type 2 (diabetes mellitus, type 2) Current Visit: No Status: Chronic Qualifiers: Diabetes mellitus detention insulin use: unspecified rn long term care insulin use status - AMA Did Patient Leave Against Medical Advice: No (Pt requests early d/c. He states he needs no meds to pharmacy)
[2019-11-05] MEDS ORDERED: METHADONE (DETOX) 10 MG, METHADONE (DETOX) 5 MG PO ONE (10:00)
[2019-11-05] MEDS: LOSARTAN 50MG/HCTZ 12.5MG 1 TAB (FP) PO SCH (10:55)
[2019-11-05] MEDS: FINASTERIDE 5 MG TABLET (FP) PO SCH (10:55)
[2019-11-05] MEDS: PRENATAL VITAMINS W/ FOLIC ACID TABLET (FP) PO SCH (10:55)
[2019-11-05] MEDS: NICOTINE 7 MG/24 HOURS TOPICAL PATCH TD SCH (10:55)
[2019-11-05] MEDS: amLODIPine BESYLATE 10 MG TABLET (FP) PO SCH (10:55)
[2019-11-05] MEDS: TAMSULOSIN HCL 0.4 MG CAP PO SCH (10:55)
[2019-11-05] MEDS: ASPIRIN COATED 81 MG TABLET.EC PO SCH (10:55)
[2019-11-06] MEDS ORDERED: chlordiazePOXIDE HCL 10 MG CAPSULE PO SCH (05:00)
[2019-11-06] MEDS ORDERED: METHADONE HCL 10 MG TABLET (FOR DETOX USE ONLY) PO ONE (10:00)
[2019-11-07] MEDS ORDERED: chlordiazePOXIDE HCL 10 MG CAPSULE PO ONE (05:00)
[2019-11-07] MEDS ORDERED: METHADONE HCL 5 MG TABLET (FOR DETOX USE ONLY) PO ONE (06:00)
== END 2019-11-05 13:06 | disposition home or self-care (01) | DRG 897 ==
LOC: YASAS 17:36 → Y3N 20:19
PROVIDERS: ADMIT Allergy & Immunology; ATTEND Allergy & Immunology
PROC: HZ2ZZZZ Detoxification Services for Substance Abuse Treatment (ICD-10-PCS; principal; 2019-11-02)
DX: F10.230 Alcohol dependence with withdrawal, uncomplicated (principal); F11.23 Opioid dependence with withdrawal; F17.210 Nicotine dependence, cigarettes, uncomplicated; F32.9 Major depressive disorder, single episode, unspecified; E78.5 Hyperlipidemia, unspecified; E11.9 Type 2 diabetes mellitus without complications; K21.9 Gastro-esophageal reflux disease without esophagitis; I11.0 Hypertensive heart disease with heart failure; I50.9 Heart failure, unspecified; Z98.61 Coronary angioplasty status; Z90.79 Acquired absence of other genital organ(s); Z79.4 Long term (current) use of insulin; Z91.018 Allergy to other foods
CPT/HCPCS: 36415; 80053; 82962; 85027; 86780; J0735; U0003

== ENCOUNTER 2020-02-28 16:24 | Inpatient (IN) | payer OTHER ==
[2020-02-28 17:02] VITALS: BMI 28.9
[2020-02-28] MEDS ORDERED: MAGNESIUM HYDROX 2400MG/30ML ORAL SUSPENSION 30 ML CUP PO PRN (17:49)
[2020-02-28] MEDS ORDERED: ACETAMINOPHEN 325 MG TABLET (FP) PO PRN ×2 (17:49)
[2020-02-28] MEDS ORDERED: MAG HYDROX/AL HYDROX/SIMETH 30 ML UNIT-DOSE CUP PO PRN (17:49)
[2020-02-28] MEDS ORDERED: MENTHOL/PHENOL 1 EACH UD MM PRN (17:49)
[2020-02-28] MEDS ORDERED: IBUPROFEN 400 MG TABLET (FP) PO PRN (17:49)
[2020-02-28] MEDS ORDERED: BISMUTH SUBSALICYLATE 524 MG/30 ML PO PRN (17:49)
[2020-02-28] MEDS ORDERED: NICOTINE POLACRILEX 2 MG GUM BUC PRN (17:49)
[2020-02-28] MEDS ORDERED: ONDANSETRON *ODT* 4 MG TABLET SL PRN (17:49)
[2020-02-28] MEDS ORDERED: METHOCARBAMOL 500 MG TABLET PO PRN (17:49)
[2020-02-28] MEDS ORDERED: MAGNESIUM CITRATE 300 ML BOTTLE PO PRN (17:49)
[2020-02-28] MEDS ORDERED: methaDONE HCL 10 MG TABLET (FOR DETOX USE ONLY) PO ONE (17:49)
[2020-02-28] MEDS ORDERED: cloNIDine HCL 0.1 MG TABLET PO ONE ×2 (17:56→21:05)
[2020-02-28] MEDS ORDERED: LISINOPRIL 10 MG TABLET PO SCH (18:00)
[2020-02-28] MEDS: hydrOXYzine PAMOATE 25 MG CAPSULE (FP) PO SCH ×2 (19:10→22:23)
[2020-02-28] MEDS: DOCUSATE SODIUM 100 MG CAPSULE (FP) PO SCH (22:22)
[2020-02-28] MEDS: TAMSULOSIN HCL 0.4 MG CAP PO SCH (22:22)
[2020-02-28] MEDS: THIAMINE HCL 100 MG TABLET (FP) PO SCH (22:22)
[2020-02-28] MEDS: ATORVASTATIN CA 10 MG TABLET (FP) PO SCH (22:23)
[2020-02-28] MEDS: MELATONIN 5 MG TABLETS PO SCH (22:23)
[2020-02-29] MEDS: DOCUSATE SODIUM 100 MG CAPSULE (FP) PO SCH ×3 (05:26→22:21)
[2020-02-29] MEDS: hydrOXYzine PAMOATE 25 MG CAPSULE (FP) PO SCH ×5 (05:26→22:22)
[2020-02-29] MEDS: cloNIDine HCL 0.1 MG TABLET PO PRN ×2 (05:27→13:33)
[2020-02-29] MEDS: INSULIN SLIDING SCALE (NOVOLOG) 1 VIAL SQ SCH ×3 (06:47→16:55)
[2020-02-29] MEDS ORDERED: methaDONE HCL 10 MG TABLET (FOR DETOX USE ONLY) ONE (09:51)
[2020-02-29] MEDS ORDERED: LISINOPRIL 10 MG TABLET PO SCH (10:00)
[2020-02-29 10:53] LABS: ALBUMIN 3.5 g/dl (3.4-5.0); BLOOD UREA NITROGEN 10.6 mg/dL (7-18); CALCIUM 8.6 mg/dL (8.5-10.1); HEMATOCRIT 42.2 % (35.4-49); HEMOGLOBIN 14.5 GM/dL (11.7-16.9); MCH 30.7 pg (25.7-33.7); MCHC 34.3 g/dl (32.0-35.9); MEAN CELL VOLUME 89.4 fl (80-96); MEAN PLT VOLUME 9.1 fl (7.5-11.1); PLATELET COUNT 172 K/MM3 (134-434); RBC 4.72 M/mm3 (4.00-5.60); RDW 12.8 % (11.9-15.9)
[2020-02-29] MEDS: LOSARTAN 50MG/HCTZ 12.5MG 1 TAB PO SCH (10:53)
[2020-02-29] MEDS: FINASTERIDE 5 MG TABLET (FP) PO SCH (10:54)
[2020-02-29] MEDS: NICOTINE 14 MG/24 HOURS TOPICAL PATCH TD SCH (10:54)
[2020-02-29] MEDS: TAMSULOSIN HCL 0.4 MG CAP PO SCH ×2 (10:54→22:21)
[2020-02-29] MEDS: LISINOPRIL 10 MG TABLET PO SCH (10:55)
[2020-02-29] MEDS: amLODIPine BESYLATE 10 MG TABLET (FP) PO SCH (10:55)
[2020-02-29 10:57] LABS: CREATININE 0.8 mg/dL (0.55-1.3)
[2020-02-29] MEDS: PRENATAL VITAMINS W/ FOLIC ACID TABLET (FP) PO SCH (10:57)
[2020-02-29] MEDS: ASPIRIN COATED 81 MG TABLET.EC PO SCH (10:57)
[2020-02-29 10:58] LABS: BILIRUBIN,TOTAL 1.1 mg/dL (0.2-1); TOT PROT 6.8 g/dl (6.4-8.2)
[2020-02-29] MEDS: MELATONIN 5 MG TABLETS PO SCH (22:21)
[2020-02-29] MEDS: THIAMINE HCL 100 MG TABLET (FP) PO SCH (22:21)
[2020-02-29] MEDS: ATORVASTATIN CA 10 MG TABLET (FP) PO SCH (22:21)
[2020-03-01] MEDS: hydrOXYzine PAMOATE 25 MG CAPSULE (FP) PO SCH ×5 (05:27→21:46)
[2020-03-01] MEDS: DOCUSATE SODIUM 100 MG CAPSULE (FP) PO SCH ×3 (05:27→21:46)
[2020-03-01] MEDS: INSULIN SLIDING SCALE (NOVOLOG) 1 VIAL SQ SCH ×3 (06:50→17:52)
[2020-03-01] MEDS: cloNIDine HCL 0.1 MG TABLET PO PRN ×2 (07:06→13:36)
[2020-03-01] MEDS: amLODIPine BESYLATE 10 MG TABLET (FP) PO SCH (09:41)
[2020-03-01] MEDS: PRENATAL VITAMINS W/ FOLIC ACID TABLET (FP) PO SCH (09:41)
[2020-03-01] MEDS: FINASTERIDE 5 MG TABLET (FP) PO SCH (09:41)
[2020-03-01] MEDS: TAMSULOSIN HCL 0.4 MG CAP PO SCH ×2 (09:41→21:46)
[2020-03-01] MEDS: ASPIRIN COATED 81 MG TABLET.EC PO SCH (09:41)
[2020-03-01] MEDS: LISINOPRIL 10 MG TABLET PO SCH ×3 (09:41→21:45)
[2020-03-01] MEDS: NICOTINE 14 MG/24 HOURS TOPICAL PATCH TD SCH (09:42)
[2020-03-01] MEDS ORDERED: methaDONE HCL 10 MG TABLET (FOR DETOX USE ONLY) PO ONE (10:00)
[2020-03-01] MEDS: LOSARTAN 50MG/HCTZ 12.5MG 1 TAB PO SCH (11:06)
[2020-03-01] MEDS ORDERED: cloNIDine HCL 0.1 MG TABLET PO PRN (14:26)
[2020-03-01] MEDS: MELATONIN 5 MG TABLETS PO SCH (21:45)
[2020-03-01] MEDS: THIAMINE HCL 100 MG TABLET (FP) PO SCH (21:45)
[2020-03-01] MEDS: ATORVASTATIN CA 10 MG TABLET (FP) PO SCH (21:46)
[2020-03-01] MEDS: diazePAM 5 MG TABLET PO PRN (21:48)
[2020-03-02] MEDS: DOCUSATE SODIUM 100 MG CAPSULE (FP) PO SCH ×3 (07:14→22:07)
[2020-03-02] MEDS: hydrOXYzine PAMOATE 25 MG CAPSULE (FP) PO SCH ×5 (07:14→22:34)
[2020-03-02] MEDS: INSULIN SLIDING SCALE (NOVOLOG) 1 VIAL SQ SCH ×3 (07:54→16:59)
[2020-03-02] MEDS ORDERED: methaDONE HCL 10 MG TABLET (FOR DETOX USE ONLY) ONE (08:51)
[2020-03-02] MEDS: FINASTERIDE 5 MG TABLET (FP) PO SCH (09:41)
[2020-03-02] MEDS: PRENATAL VITAMINS W/ FOLIC ACID TABLET (FP) PO SCH (09:41)
[2020-03-02] MEDS: NICOTINE 14 MG/24 HOURS TOPICAL PATCH TD SCH (09:42)
[2020-03-02] MEDS: LOSARTAN 50MG/HCTZ 12.5MG 1 TAB PO SCH (09:42)
[2020-03-02] MEDS: LISINOPRIL 10 MG TABLET PO SCH ×2 (09:42→22:07)
[2020-03-02] MEDS: amLODIPine BESYLATE 10 MG TABLET (FP) PO SCH (09:42)
[2020-03-02] MEDS: ASPIRIN COATED 81 MG TABLET.EC PO SCH (09:42)
[2020-03-02] MEDS: TAMSULOSIN HCL 0.4 MG CAP PO SCH ×2 (09:42→22:07)
[2020-03-02] MEDS: THIAMINE HCL 100 MG TABLET (FP) PO SCH (22:07)
[2020-03-02] MEDS: ATORVASTATIN CA 10 MG TABLET (FP) PO SCH (22:07)
[2020-03-02] MEDS: MELATONIN 5 MG TABLETS PO SCH (22:07)
[2020-03-02] MEDS: diazePAM 5 MG TABLET PO PRN (22:13)
[2020-03-03] MEDS: DOCUSATE SODIUM 100 MG CAPSULE (FP) PO SCH ×3 (06:23→22:41)
[2020-03-03] MEDS: hydrOXYzine PAMOATE 25 MG CAPSULE (FP) PO SCH ×5 (06:23→22:04)
[2020-03-03] MEDS: INSULIN SLIDING SCALE (NOVOLOG) 1 VIAL SQ SCH ×3 (06:28→16:49)
[2020-03-03] MEDS ORDERED: methaDONE HCL 10 MG TABLET (FOR DETOX USE ONLY) PO ONE (10:00)
[2020-03-03] MEDS: LOSARTAN 50MG/HCTZ 12.5MG 1 TAB PO SCH (10:12)
[2020-03-03] MEDS: FINASTERIDE 5 MG TABLET (FP) PO SCH (10:12)
[2020-03-03] MEDS: ASPIRIN COATED 81 MG TABLET.EC PO SCH (10:12)
[2020-03-03] MEDS: LISINOPRIL 10 MG TABLET PO SCH ×2 (10:12→22:03)
[2020-03-03] MEDS: TAMSULOSIN HCL 0.4 MG CAP PO SCH ×2 (10:12→22:03)
[2020-03-03] MEDS: PRENATAL VITAMINS W/ FOLIC ACID TABLET (FP) PO SCH (10:12)
[2020-03-03] MEDS: amLODIPine BESYLATE 10 MG TABLET (FP) PO SCH (10:12)
[2020-03-03] MEDS: NICOTINE 14 MG/24 HOURS TOPICAL PATCH TD SCH (10:12)
[2020-03-03] MEDS: diazePAM 5 MG TABLET PO PRN ×2 (10:16→22:07)
[2020-03-03] MEDS: ATORVASTATIN CA 10 MG TABLET (FP) PO SCH (22:03)
[2020-03-03] MEDS: THIAMINE HCL 100 MG TABLET (FP) PO SCH (22:03)
[2020-03-03] MEDS: MELATONIN 5 MG TABLETS PO SCH (22:04)
[2020-03-04 05:56] VITALS: BP 143/65; PULSE 76; TEMP 98
[2020-03-04] MEDS: DOCUSATE SODIUM 100 MG CAPSULE (FP) PO SCH (05:59)
[2020-03-04] MEDS: hydrOXYzine PAMOATE 25 MG CAPSULE (FP) PO SCH (05:59)
[2020-03-04] MEDS: INSULIN SLIDING SCALE (NOVOLOG) 1 VIAL SQ SCH (07:16)
== END 2020-03-04 09:25 | disposition home or self-care (01) | DRG 897 ==
LOC: YASAS 16:24 → Y6N 18:11
PROVIDERS: ADMIT Allergy & Immunology; ATTEND Allergy & Immunology
PROC: HZ2ZZZZ Detoxification Services for Substance Abuse Treatment (ICD-10-PCS; principal; 2020-02-28)
DX: F11.23 Opioid dependence with withdrawal (principal); F10.230 Alcohol dependence with withdrawal, uncomplicated; F12.20 Cannabis dependence, uncomplicated; F17.210 Nicotine dependence, cigarettes, uncomplicated; I10 Essential (primary) hypertension; K21.9 Gastro-esophageal reflux disease without esophagitis; E78.5 Hyperlipidemia, unspecified; E11.9 Type 2 diabetes mellitus without complications; Z79.4 Long term (current) use of insulin; N40.0 Benign prostatic hyperplasia without lower urinary tract symptoms; M54.30 Sciatica, unspecified side; Z90.79 Acquired absence of other genital organ(s); Z91.018 Allergy to other foods; Z86.79 Personal history of other diseases of the circulatory system
CPT/HCPCS: 36415; 80053; 82962; 83036; 85027; 86780; C9803; J0735; Q0162; U0003

== ENCOUNTER 2020-06-12 21:29 | Inpatient (IN) | payer OTHER ==
[2020-06-12 21:59] VITALS: BMI 30.2
[2020-06-12] MEDS ORDERED: MAG HYDROX/AL HYDROX/SIMETH 30 ML UNIT-DOSE CUP PO PRN (23:07)
[2020-06-12] MEDS ORDERED: MAGNESIUM CITRATE 300 ML BOTTLE PO PRN (23:07)
[2020-06-12] MEDS ORDERED: METHOCARBAMOL 500 MG TABLET PO PRN (23:07)
[2020-06-12] MEDS ORDERED: ONDANSETRON *ODT* 4 MG TABLET SL PRN (23:07)
[2020-06-12] MEDS ORDERED: diazePAM 5 MG TABLET PO PRN (23:07)
[2020-06-12] MEDS ORDERED: MAGNESIUM HYDROX 2400MG/30ML ORAL SUSPENSION 30 ML CUP PO PRN (23:07)
[2020-06-12] MEDS ORDERED: MENTHOL/PHENOL 1 EACH UD MM PRN (23:07)
[2020-06-12] MEDS ORDERED: METHADONE HCL 10 MG TABLET (FOR DETOX USE ONLY) PO ONE (23:07)
[2020-06-12] MEDS ORDERED: NICOTINE POLACRILEX 2 MG GUM BUC PRN (23:07)
[2020-06-12] MEDS ORDERED: IBUPROFEN 400 MG TABLET (FP) PO PRN (23:07)
[2020-06-12] MEDS ORDERED: ACETAMINOPHEN 325 MG TABLET (FP) PO PRN ×2 (23:07)
[2020-06-12] MEDS ORDERED: BISMUTH SUBSALICYLATE 524 MG/30 ML UD PO PRN (23:07)
[2020-06-13] MEDS: cloNIDine HCL 0.1 MG TABLET PO PRN ×3 (00:39→17:09)
[2020-06-13] MEDS: diazePAM 5 MG TABLET PO SCH ×5 (00:39→22:42)
[2020-06-13 06:06] VITALS: TEMP 97.1
[2020-06-13] MEDS ORDERED: METHADONE HCL 10 MG TABLET (FOR DETOX USE ONLY) ONE (09:07)
[2020-06-13] MEDS ORDERED: METHADONE HCL 5 MG TABLET (FOR DETOX USE ONLY) ONE (09:07)
[2020-06-13] MEDS ORDERED: amLODIPine BESYLATE 10 MG TABLET (FP) PO SCH (10:00)
[2020-06-13] MEDS ORDERED: NICOTINE 14 MG/24 HOURS TOPICAL PATCH TD SCH (10:00)
[2020-06-13] MEDS ORDERED: METHADONE (DETOX) 20 MG, METHADONE (DETOX) 5 MG PO ONE (10:00)
[2020-06-13] MEDS ORDERED: PRENATAL VITAMINS W/ FOLIC ACID TABLET (FP) PO SCH (10:00)
[2020-06-13] MEDS ORDERED: FINASTERIDE 5 MG TABLET (FP) PO SCH (10:00)
[2020-06-13] MEDS ORDERED: ASPIRIN COATED 81 MG TABLET.EC PO SCH (10:00)
[2020-06-13] MEDS: LISINOPRIL 20 MG TABLET PO SCH ×2 (10:04→22:39)
[2020-06-13] MEDS: TAMSULOSIN HCL 0.4 MG CAP PO SCH ×2 (10:04→22:38)
[2020-06-13 11:11] LABS: HEMATOCRIT 39.7 % (35.4-49); HEMOGLOBIN 13.5 GM/dL (11.7-16.9); MCH 30.7 pg (25.7-33.7); MEAN CELL VOLUME 90.2 fl (80-96); MEAN PLT VOLUME 9.7 fl (7.5-11.1); PLATELET COUNT 139 K/MM3 (134-434); RDW 13.8 % (11.9-15.9); WHITE BLOOD COUNT 6.2 K/mm3 (4.0-10.0)
[2020-06-13 11:13] LABS: ALBUMIN 3.5 g/dl (3.4-5.0); BLOOD UREA NITROGEN 8.6 mg/dL (7-18); CALCIUM 8.6 mg/dL (8.5-10.1)
[2020-06-13 11:16] LABS: CREATININE 0.9 mg/dL (0.55-1.3)
[2020-06-13 11:18] LABS: BILIRUBIN,TOTAL 0.9 mg/dL (0.2-1); TOT PROT 6.6 g/dl (6.4-8.2)
[2020-06-13] MEDS ORDERED: PATIENT'S OWN MEDICATION (NON-FORMULARY) (Losartan/Hydrochlorothiazide [Losartan-Hctz 100- PO SCH (13:15)
[2020-06-13] MEDS ORDERED: LOSARTAN POTASSIUM 50 MG TABLET PO ONE (14:00)
[2020-06-13] MEDS ORDERED: HYDROCHLOROTHIAZIDE 25 MG TABLET (FP) PO ONE (14:00)
[2020-06-13] MEDS ORDERED: QUEtiapine FUMARATE 25 MG TABLET PO SCH (22:00)
[2020-06-13] MEDS ORDERED: ATORVASTATIN CA 10 MG TABLET (FP) PO SCH (22:00)
[2020-06-13] MEDS ORDERED: MELATONIN 5 MG TABLETS PO SCH (22:00)
[2020-06-13] MEDS ORDERED: THIAMINE HCL 100 MG TABLET (FP) PO SCH (22:00)
[2020-06-14] MEDS ORDERED: diazePAM 5 MG TABLET PO SCH (06:00)
[2020-06-14 06:35] VITALS: BP 199/81; PULSE 49
[2020-06-14] MEDS ORDERED: LOSARTAN POTASSIUM 50 MG TABLET PO SCH (10:00)
[2020-06-14] MEDS ORDERED: HYDROCHLOROTHIAZIDE 25 MG TABLET (FP) PO SCH (10:00)
[2020-06-14] MEDS ORDERED: METHADONE HCL 10 MG TABLET (FOR DETOX USE ONLY) PO ONE (10:00)
[2020-06-15] MEDS ORDERED: diazePAM 5 MG TABLET PO SCH (06:00)
[2020-06-15] MEDS ORDERED: METHADONE (DETOX) 10 MG, METHADONE (DETOX) 5 MG PO ONE (10:00)
[2020-06-16] MEDS ORDERED: diazePAM 5 MG TABLET PO ONE (06:00)
[2020-06-16] MEDS ORDERED: METHADONE HCL 10 MG TABLET (FOR DETOX USE ONLY) PO ONE (10:00)
[2020-06-17] MEDS ORDERED: METHADONE HCL 5 MG TABLET (FOR DETOX USE ONLY) PO ONE (06:00)
== END 2020-06-14 09:24 | disposition left against medical advice (07) | DRG 894 ==
LOC: YASAS 21:29 → Y3N 22:51
PROVIDERS: ADMIT Allergy & Immunology; ATTEND Allergy & Immunology
PROC: HZ2ZZZZ Detoxification Services for Substance Abuse Treatment (ICD-10-PCS; principal; 2020-06-12)
DX: F11.23 Opioid dependence with withdrawal (principal); F13.20 Sedative, hypnotic or anxiolytic dependence, uncomplicated; F10.230 Alcohol dependence with withdrawal, uncomplicated; F12.20 Cannabis dependence, uncomplicated; F17.210 Nicotine dependence, cigarettes, uncomplicated; E78.5 Hyperlipidemia, unspecified; E11.9 Type 2 diabetes mellitus without complications; I10 Essential (primary) hypertension; K21.9 Gastro-esophageal reflux disease without esophagitis; G47.00 Insomnia, unspecified; M54.32 Sciatica, left side; N40.0 Benign prostatic hyperplasia without lower urinary tract symptoms; Z79.4 Long term (current) use of insulin
CPT/HCPCS: 36415; 80053; 85027; 86780; 93005; 93010; C9803; J0735; U0003; U0005

== ENCOUNTER 2020-08-14 20:10 | Inpatient (IN) | payer BC, OTHER ==
[2020-08-14] MEDS ORDERED: NALOXONE HCL 0.4 MG/ML VIAL IM PRN (22:34)
[2020-08-14] MEDS ORDERED: NICOTINE POLACRILEX 2 MG GUM BUC PRN (22:34)
[2020-08-14] MEDS ORDERED: diazePAM 5 MG TABLET PO PRN (22:34)
[2020-08-14] MEDS ORDERED: MAGNESIUM HYDROX 2400MG/30ML ORAL SUSPENSION 30 ML CUP PO PRN (22:34)
[2020-08-14] MEDS ORDERED: MAG HYDROX/AL HYDROX/SIMETH 30 ML UNIT-DOSE CUP PO PRN (22:34)
[2020-08-14] MEDS ORDERED: NALOXONE (NARCAN) HCL 4 MG/0.1 ML SPRAY NS PRN (22:34)
[2020-08-14] MEDS ORDERED: METHADONE HCL 10 MG TABLET (FOR DETOX USE ONLY) PO ONE (22:34)
[2020-08-14] MEDS ORDERED: P-EPHED 60MG/TRIPROLIDI 2.5MG TABLET PO PRN (22:34)
[2020-08-14] MEDS ORDERED: METHOCARBAMOL 500 MG TABLET PO PRN (22:34)
[2020-08-14] MEDS ORDERED: MENTHOL/PHENOL 1 EACH UD MM PRN (22:34)
[2020-08-14] MEDS ORDERED: DICYCLOMINE HCL 10 MG CAPSULE PO PRN (22:34)
[2020-08-14] MEDS ORDERED: ACETAMINOPHEN 325 MG TABLET (FP) PO PRN ×2 (22:34)
[2020-08-14] MEDS ORDERED: ONDANSETRON *ODT* 4 MG TABLET SL PRN (22:34)
[2020-08-14] MEDS ORDERED: MAGNESIUM CITRATE 300 ML BOTTLE PO PRN (22:34)
[2020-08-14] MEDS ORDERED: guaiFENesin 200 MG/10 ML 10 ML UNIT-DOSE CUPS PO PRN (22:34)
[2020-08-14] MEDS ORDERED: IBUPROFEN 400 MG TABLET (FP) PO PRN (22:34)
[2020-08-14] MEDS ORDERED: BISMUTH SUBSALICYLATE 524 MG/30 ML PO PRN (22:34)
[2020-08-14 22:42] VITALS: BMI 26.6
[2020-08-15] MEDS: diazePAM 5 MG TABLET PO SCH ×5 (00:56→23:00)
[2020-08-15] MEDS: cloNIDine HCL 0.1 MG TABLET PO PRN (06:49)
[2020-08-15] MEDS ORDERED: METHADONE HCL 10 MG TABLET (FOR DETOX USE ONLY) ONE (09:30)
[2020-08-15] MEDS ORDERED: METHADONE HCL 5 MG TABLET (FOR DETOX USE ONLY) ONE (09:31)
[2020-08-15] MEDS ORDERED: PRENATAL VITAMINS W/ FOLIC ACID TABLET (FP) PO SCH (10:00)
[2020-08-15] MEDS ORDERED: METHADONE (DETOX) 20 MG, METHADONE (DETOX) 5 MG PO ONE (10:00)
[2020-08-15] MEDS ORDERED: NICOTINE 14 MG/24 HOURS TOPICAL PATCH TD SCH (10:00)
[2020-08-15] MEDS ORDERED: HYDROCHLOROTHIAZIDE 25 MG TABLET (FP) PO SCH (10:00)
[2020-08-15] MEDS ORDERED: amLODIPine BESYLATE 10 MG TABLET (FP) PO SCH (10:00)
[2020-08-15] MEDS ORDERED: FINASTERIDE 5 MG TABLET (FP) PO SCH (10:00)
[2020-08-15] MEDS ORDERED: ASPIRIN COATED 81 MG TABLET.EC PO SCH (10:00)
[2020-08-15 10:47] LABS: HEMATOCRIT 42.8 % (35.4-49); HEMOGLOBIN 14.1 GM/dL (11.7-16.9); MCH 29.6 pg (25.7-33.7); MEAN CELL VOLUME 89.8 fl (80-96); MEAN PLT VOLUME 9.3 fl (7.5-11.1); PLATELET COUNT 161 10^3/uL (134-434); RBC 4.77 M/mm3 (4.00-5.60); RDW 13.5 % (11.9-15.9); WHITE BLOOD COUNT 5.6 K/mm3 (4.0-10.0)
[2020-08-15 11:19] LABS: BLOOD UREA NITROGEN 9.4 mg/dL (7-18)
[2020-08-15 11:44] LABS: ALBUMIN 3.6 g/dl (3.4-5.0)
[2020-08-15 11:47] LABS: CREATININE 0.8 mg/dL (0.55-1.3)
[2020-08-15 12:00] LABS: BILIRUBIN,TOTAL 0.8 mg/dL (0.2-1)
[2020-08-15] MEDS: LISINOPRIL 20 MG TABLET PO SCH ×2 (15:15→22:59)
[2020-08-15] MEDS: TAMSULOSIN HCL 0.4 MG CAP PO SCH ×2 (15:15→22:58)
[2020-08-15] MEDS ORDERED: THIAMINE HCL 100 MG TABLET (FP) PO SCH (22:00)
[2020-08-15] MEDS ORDERED: QUEtiapine FUMARATE 100 MG TABLET (FP) PO SCH (22:00)
[2020-08-15] MEDS ORDERED: ATORVASTATIN CA 10 MG TABLET (FP) PO SCH (22:00)
[2020-08-15] MEDS ORDERED: MELATONIN 5 MG TABLETS PO SCH (22:00)
[2020-08-16] MEDS: cloNIDine HCL 0.1 MG TABLET PO PRN (01:54)
[2020-08-16] MEDS ORDERED: diazePAM 5 MG TABLET PO SCH (06:00)
[2020-08-16 09:25] VITALS: BP 180/82; PULSE 57; TEMP 96.4
[2020-08-16] MEDS ORDERED: METHADONE HCL 10 MG TABLET (FOR DETOX USE ONLY) PO ONE (10:00)
[2020-08-17] MEDS ORDERED: diazePAM 5 MG TABLET PO SCH (06:00)
[2020-08-17] MEDS ORDERED: METHADONE (DETOX) 10 MG, METHADONE (DETOX) 5 MG PO ONE (10:00)
[2020-08-18] MEDS ORDERED: diazePAM 5 MG TABLET PO ONE (06:00)
[2020-08-18] MEDS ORDERED: METHADONE HCL 10 MG TABLET (FOR DETOX USE ONLY) PO ONE (10:00)
[2020-08-19] MEDS ORDERED: METHADONE HCL 5 MG TABLET (FOR DETOX USE ONLY) PO ONE (06:00)
== END 2020-08-16 09:21 | disposition left against medical advice (07) | DRG 894 ==
LOC: YASAS 20:10 → Y3N 23:56
PROVIDERS: ADMIT Allergy & Immunology; ATTEND Allergy & Immunology
PROC: HZ2ZZZZ Detoxification Services for Substance Abuse Treatment (ICD-10-PCS; principal; 2020-08-14)
DX: F11.23 Opioid dependence with withdrawal (principal); F13.20 Sedative, hypnotic or anxiolytic dependence, uncomplicated; F19.282 Other psychoactive substance dependence with psychoactive substance-induced sleep disorder; F10.230 Alcohol dependence with withdrawal, uncomplicated; F14.10 Cocaine abuse, uncomplicated; F12.20 Cannabis dependence, uncomplicated; F17.210 Nicotine dependence, cigarettes, uncomplicated; F19.24 Other psychoactive substance dependence with psychoactive substance-induced mood disorder; F32.9 Major depressive disorder, single episode, unspecified; I11.0 Hypertensive heart disease with heart failure; I50.9 Heart failure, unspecified; E78.5 Hyperlipidemia, unspecified; E11.9 Type 2 diabetes mellitus without complications; M54.32 Sciatica, left side; R07.9 Chest pain, unspecified; R00.1 Bradycardia, unspecified; Z79.4 Long term (current) use of insulin; Z90.79 Acquired absence of other genital organ(s)
CPT/HCPCS: 36415; 80053; 85027; 86780; 93005; 93010; C9803; J0735; Q0162; U0003; U0005

== ENCOUNTER 2020-08-15 16:42 | Emergency (ER) | payer BC, OTHER ==
[2020-08-15 16:58] VITALS: TEMP 97.5; BMI 29.6
[2020-08-15] MEDS ORDERED: LISINOPRIL 20 MG TABLET PO ONE (17:28)
[2020-08-15] MEDS ORDERED: LISINOPRIL 20 MG TABLET ONE (17:44)
[2020-08-15 17:50] LABS: URINE APPEARANCE CLEAR; URINE BILIRUBIN NEGATIVE (NEGATIVE); URINE COLOR YELLOW; URINE GLUCOSE (UA) NEGATIVE (NEGATIVE); URINE KETONE NEGATIVE (NEGATIVE); URINE LEUK ESTERASE NEGATIVE (NEGATIVE); URINE NITRITE NEGATIVE (NEGATIVE); URINE PROTEIN NEGATIVE (NEGATIVE)
[2020-08-15 18:32] LABS: BASO % 1.2 % (0-2.0); EOS % 4.5 % (0-4.5); HEMOGLOBIN 14.9 GM/dL (11.7-16.9); LYMPH % 19.1 % (8-40); MCH 29.8 pg (25.7-33.7); MCHC 33.9 g/dl (32.0-35.9); MEAN CELL VOLUME 87.7 fl (80-96); MEAN PLT VOLUME 8.7 fl (7.5-11.1); MONO % 8.1 % (3.8-10.2); NEUT % 67.1 % (42.8-82.8); PLATELET COUNT 163 10^3/uL (134-434); RBC 5.02 M/mm3 (4.00-5.60); RDW 13.3 % (11.9-15.9); WHITE BLOOD COUNT 6.4 K/mm3 (4.0-10.0)
[2020-08-15 18:38] LABS: INR 1.1 (0.83-1.09); PROTHROMBIN TIME (PATIENT) 13.3 SEC (9.7-13.0)
[2020-08-15 18:40] LABS: CHLORIDE 101 mmol/L (98-107); SODIUM 139 mmol/L (136-145)
[2020-08-15 18:41] LABS: ACTIVATED PTT 36.6 SECONDS (25.2-36.5)
[2020-08-15 18:42] LABS: ALBUMIN 3.8 g/dl (3.4-5.0); CALCIUM 9.3 mg/dL (8.5-10.1)
[2020-08-15 18:43] LABS: ANION GAP 7 MMOL/L (8-16); BLOOD UREA NITROGEN 9.1 mg/dL (7-18); CO2 31 mmol/L (21-32); GLUCOSE,RANDOM 117 mg/dL (74-106)
[2020-08-15 18:46] LABS: CREATININE 0.8 mg/dL (0.55-1.3); SGOT/AST 56 U/L (15-37); SGPT/ALT 64 U/L (13-61); TOT PROT 7.5 g/dl (6.4-8.2)
[2020-08-15 18:49] LABS: ALK PHOS 94 U/L (45-117)
[2020-08-15 18:50] LABS: N-TERMINAL BNP 1493.8 pg/ml (5-125)
[2020-08-15 18:51] LABS: BILIRUBIN,TOTAL 0.9 mg/dL (0.2-1)
[2020-08-15 20:20] VITALS: BP 186/79; PULSE 48
== END 2020-08-16 01:16 | disposition home or self-care (01) ==
LOC: JER 16:42
DX: R07.9 Chest pain, unspecified (principal)
CPT/HCPCS: 36415; 71045-TC-FY; 80053; 81003; 83880; 84484; 85025; 85610; 85730; 93005; 93010; 99285-25

== ENCOUNTER 2020-09-06 13:20 | Inpatient (IN) | payer OTHER ==
[2020-09-06 15:24] VITALS: BMI 40.0
[2020-09-06] MEDS ORDERED: cloNIDine HCL 0.1 MG TABLET PO PRN ×2 (15:40→15:43)
[2020-09-06] MEDS ORDERED: ACETAMINOPHEN 325 MG TABLET (FP) PO PRN ×2 (15:41)
[2020-09-06] MEDS ORDERED: MAGNESIUM HYDROX 2400MG/30ML ORAL SUSPENSION 30 ML CUP PO PRN (15:41)
[2020-09-06] MEDS ORDERED: NICOTINE POLACRILEX 2 MG GUM BUC PRN (15:41)
[2020-09-06] MEDS ORDERED: METHOCARBAMOL 500 MG TABLET PO PRN (15:41)
[2020-09-06] MEDS ORDERED: ONDANSETRON *ODT* 4 MG TABLET SL PRN (15:41)
[2020-09-06] MEDS ORDERED: MAG HYDROX/AL HYDROX/SIMETH 30 ML UNIT-DOSE CUP PO PRN (15:41)
[2020-09-06] MEDS ORDERED: MENTHOL/PHENOL 1 EACH UD MM PRN (15:41)
[2020-09-06] MEDS ORDERED: BISMUTH SUBSALICYLATE 524 MG/30 ML PO PRN (15:41)
[2020-09-06] MEDS ORDERED: IBUPROFEN 400 MG TABLET (FP) PO PRN (15:41)
[2020-09-06] MEDS ORDERED: MAGNESIUM CITRATE 300 ML BOTTLE PO PRN (15:41)
[2020-09-06] MEDS ORDERED: amLODIPine BESYLATE 10 MG TABLET (FP) PO ONE (15:51)
[2020-09-06] MEDS ORDERED: INSULIN SLIDING SCALE (NOVOLOG) 1 VIAL SQ SCH (16:30)
[2020-09-06 17:55] VITALS: PULSE 42; TEMP 97.8
[2020-09-06] MEDS ORDERED: methaDONE HCL 10 MG TABLET (FOR DETOX USE ONLY) PO ONE ×2 (18:00→23:00)
[2020-09-06] MEDS ORDERED: hydrOXYzine PAMOATE 25 MG CAPSULE (FP) PO SCH (18:00)
[2020-09-06 18:17] VITALS: BP 177/82
[2020-09-06] MEDS: TRIMETHOBENZAMIDE HCL 200MG/2ML INJ IM ONE ×2 (21:14→21:20)
[2020-09-06] MEDS ORDERED: DOCUSATE SODIUM 100 MG CAPSULE (FP) PO SCH (22:00)
[2020-09-06] MEDS ORDERED: ATORVASTATIN CA 10 MG TABLET (FP) PO SCH (22:00)
[2020-09-06] MEDS ORDERED: THIAMINE HCL 100 MG TABLET (FP) PO SCH (22:00)
[2020-09-06] MEDS ORDERED: INSULIN (LEVEMIR) 100 UNITS/ML UNITS SQ SCH (22:00)
[2020-09-06] MEDS ORDERED: MELATONIN 5 MG TABLETS PO SCH (22:00)
[2020-09-07] MEDS ORDERED: PATIENT'S OWN MEDICATION (NON-FORMULARY) (Losartan/Hydrochlorothiazide [Losartan-Hctz 100- PO SCH (10:00)
[2020-09-07] MEDS ORDERED: FINASTERIDE 5 MG TABLET (FP) PO SCH (10:00)
[2020-09-07] MEDS ORDERED: PRENATAL VITAMINS W/ FOLIC ACID TABLET (FP) PO SCH (10:00)
[2020-09-07] MEDS ORDERED: NICOTINE 14 MG/24 HOURS TOPICAL PATCH TD SCH (10:00)
[2020-09-07] MEDS ORDERED: ASPIRIN COATED 81 MG TABLET.EC PO SCH (10:00)
[2020-09-07] MEDS ORDERED: HYDROCHLOROTHIAZIDE 25 MG TABLET (FP) PO SCH (10:00)
[2020-09-07] MEDS ORDERED: amLODIPine BESYLATE 10 MG TABLET (FP) PO SCH (10:00)
[2020-09-08] MEDS ORDERED: methaDONE HCL 10 MG TABLET (FOR DETOX USE ONLY) PO ONE (10:00)
[2020-09-10] MEDS ORDERED: methaDONE HCL 10 MG TABLET (FOR DETOX USE ONLY) PO ONE (10:00)
== END 2020-09-06 21:50 | disposition left against medical advice (07) | DRG 894 ==
LOC: YASAS 13:20 → Y3N 17:08
PROVIDERS: ADMIT Allergy & Immunology; ATTEND Allergy & Immunology
PROC: HZ2ZZZZ Detoxification Services for Substance Abuse Treatment (ICD-10-PCS; principal; 2020-09-06)
DX: F11.23 Opioid dependence with withdrawal (principal); F13.20 Sedative, hypnotic or anxiolytic dependence, uncomplicated; F10.230 Alcohol dependence with withdrawal, uncomplicated; F12.20 Cannabis dependence, uncomplicated; F17.210 Nicotine dependence, cigarettes, uncomplicated; F32.9 Major depressive disorder, single episode, unspecified; E78.5 Hyperlipidemia, unspecified; E11.9 Type 2 diabetes mellitus without complications; Z79.4 Long term (current) use of insulin; I11.0 Hypertensive heart disease with heart failure; I50.9 Heart failure, unspecified; K59.03 Drug induced constipation; K21.9 Gastro-esophageal reflux disease without esophagitis; M54.32 Sciatica, left side; R94.31 Abnormal electrocardiogram [ECG] [EKG]; R00.1 Bradycardia, unspecified; Z90.79 Acquired absence of other genital organ(s)
CPT/HCPCS: 82962; 93005; 93010; C9803; U0003; U0005

== ENCOUNTER 2020-12-21 13:55 | Inpatient (IN) | payer OTHER ==
[2020-12-21] MEDS ORDERED: MAG HYDROX/AL HYDROX/SIMETH 30 ML UNIT-DOSE CUP PO PRN (14:56)
[2020-12-21] MEDS ORDERED: ACETAMINOPHEN 325 MG TABLET (FP) PO PRN ×2 (14:56)
[2020-12-21] MEDS ORDERED: ONDANSETRON *ODT* 4 MG TABLET SL PRN (14:56)
[2020-12-21] MEDS ORDERED: BISMUTH SUBSALICYLATE 524 MG/30 ML PO PRN (14:56)
[2020-12-21] MEDS ORDERED: MAGNESIUM CITRATE 300 ML BOTTLE PO PRN (14:56)
[2020-12-21] MEDS ORDERED: IBUPROFEN 400 MG TABLET (FP) PO PRN (14:56)
[2020-12-21] MEDS ORDERED: methaDONE HCL 10 MG TABLET (FOR DETOX USE ONLY) PO ONE ×2 (14:56→19:45)
[2020-12-21] MEDS ORDERED: NICOTINE 10 MG CARTRIDGE (INHALER) IH PRN (14:56)
[2020-12-21] MEDS ORDERED: MAGNESIUM HYDROX 2400MG/30ML ORAL SUSPENSION 30 ML CUP PO PRN (14:56)
[2020-12-21] MEDS ORDERED: MENTHOL/PHENOL 1 EACH UD MM PRN (14:56)
[2020-12-21 18:35] VITALS: BMI 28.3
[2020-12-21] MEDS: PRENATAL VITAMINS W/ FOLIC ACID TABLET (FP) PO SCH (19:51)
[2020-12-21] MEDS: hydrOXYzine PAMOATE 25 MG CAPSULE (FP) PO SCH ×2 (19:51→21:22)
[2020-12-21] MEDS: cloNIDine HCL 0.1 MG TABLET PO PRN (19:51)
[2020-12-21] MEDS: MELATONIN 5 MG TABLETS PO SCH (21:21)
[2020-12-21] MEDS: THIAMINE HCL 100 MG TABLET (FP) PO SCH (21:22)
[2020-12-22] MEDS: hydrOXYzine PAMOATE 25 MG CAPSULE (FP) PO SCH (05:29)
[2020-12-22] MEDS ORDERED: methaDONE HCL 10 MG TABLET (FOR DETOX USE ONLY) ONE (09:30)
[2020-12-22] MEDS ORDERED: ASPIRIN COATED 81 MG TABLET.EC PO SCH (10:00)
[2020-12-22] MEDS ORDERED: amLODIPine BESYLATE 10 MG TABLET (FP) PO SCH (10:00)
[2020-12-22] MEDS: METHOCARBAMOL 500 MG TABLET PO PRN ×2 (10:54→22:46)
[2020-12-22] MEDS: TAMSULOSIN HCL 0.4 MG CAP PO SCH ×2 (10:54→22:48)
[2020-12-22] MEDS: PRENATAL VITAMINS W/ FOLIC ACID TABLET (FP) PO SCH (10:55)
[2020-12-22] MEDS: hydrOXYzine PAMOATE 25 MG CAPSULE (FP) PO PRN ×2 (10:56→22:46)
[2020-12-22] MEDS: cloNIDine HCL 0.1 MG TABLET PO PRN ×3 (10:58→22:46)
[2020-12-22] MEDS: INSULIN (NOVOLOG) ASPART 100 UNITS/ML 10ML VIAL SQ SCH ×2 (12:18→17:02)
[2020-12-22] MEDS ORDERED: ATORVASTATIN CA 10 MG TABLET (FP) PO SCH (22:00)
[2020-12-22] MEDS: THIAMINE HCL 100 MG TABLET (FP) PO SCH (22:46)
[2020-12-22] MEDS: MELATONIN 5 MG TABLETS PO SCH (22:47)
[2020-12-23] MEDS: cloNIDine HCL 0.1 MG TABLET PO PRN (02:38)
[2020-12-23 05:01] VITALS: BP 196/96; PULSE 51; TEMP 98
[2020-12-23] MEDS: INSULIN (NOVOLOG) ASPART 100 UNITS/ML 10ML VIAL SQ SCH (06:03)
[2020-12-23] MEDS ORDERED: methaDONE HCL 10 MG TABLET (FOR DETOX USE ONLY) PO ONE (10:00)
[2020-12-25] MEDS ORDERED: methaDONE HCL 10 MG TABLET (FOR DETOX USE ONLY) PO ONE (10:00)
== END 2020-12-23 08:28 | disposition short-term general hospital (02) | DRG 897 ==
LOC: YASAS 13:55 → Y3N 17:54
PROVIDERS: ADMIT Allergy & Immunology; ATTEND Allergy & Immunology
PROC: HZ2ZZZZ Detoxification Services for Substance Abuse Treatment (ICD-10-PCS; principal; 2020-12-21)
DX: F11.23 Opioid dependence with withdrawal (principal); F13.20 Sedative, hypnotic or anxiolytic dependence, uncomplicated; F12.10 Cannabis abuse, uncomplicated; F17.210 Nicotine dependence, cigarettes, uncomplicated; I25.10 Atherosclerotic heart disease of native coronary artery without angina pectoris; I10 Essential (primary) hypertension; E78.5 Hyperlipidemia, unspecified; E11.9 Type 2 diabetes mellitus without complications; Z79.4 Long term (current) use of insulin; K21.9 Gastro-esophageal reflux disease without esophagitis; R00.1 Bradycardia, unspecified; R42 Dizziness and giddiness; W18.30XA Fall on same level, unspecified, initial encounter; Y92.230 Patient room in hospital as the place of occurrence of the external cause; Z86.79 Personal history of other diseases of the circulatory system; Z90.79 Acquired absence of other genital organ(s)
CPT/HCPCS: 82962; C9803; J0735; Q0162; U0003; U0005

== ENCOUNTER 2020-12-23 05:19 | Inpatient (IN) | payer OTHER ==
[2020-12-23 05:41] VITALS: BMI 29.0
[2020-12-23] MEDS ORDERED: ONDANSETRON 4 MG/2 ML VIAL ONE (08:14)
[2020-12-23] MEDS ORDERED: ONDANSETRON 4 MG/2 ML VIAL IVPUSH ONE (08:16)
[2020-12-23 08:23] LABS: BASO % 0.6 % (0-2.0); HEMATOCRIT 44.7 % (35.4-49); HEMOGLOBIN 15.4 GM/dL (11.7-16.9); LYMPH % 12.3 % (8-40); MCH 30.8 pg (25.7-33.7); MCHC 34.5 g/dl (32.0-35.9); MEAN CELL VOLUME 89.2 fl (80-96); MEAN PLT VOLUME 9.5 fl (7.5-11.1); MONO % 2.7 % (3.8-10.2); NEUT % 84.4 % (42.8-82.8); PLATELET COUNT 199 10^3/uL (134-434); RBC 5.01 M/mm3 (4.00-5.60); RDW 12.7 % (11.9-15.9); WHITE BLOOD COUNT 9.5 K/mm3 (4.0-10.0)
[2020-12-23 08:45] LABS: CHLORIDE 103 mmol/L (98-107); SODIUM 139 mmol/L (136-145)
[2020-12-23 08:48] LABS: ALBUMIN 3.8 g/dl (3.4-5.0); ANION GAP 11 MMOL/L (8-16); BLOOD UREA NITROGEN 17.2 mg/dL (7-18); CO2 26 mmol/L (21-32); GLUCOSE,RANDOM 120 mg/dL (74-106)
[2020-12-23 08:51] LABS: CREATININE 0.9 mg/dL (0.55-1.3); SGOT/AST 39 U/L (15-37); SGPT/ALT 47 U/L (13-61)
[2020-12-23 08:53] LABS: BILIRUBIN,TOTAL 1.5 mg/dL (0.2-1); TOT PROT 7.7 g/dl (6.4-8.2)
[2020-12-23 08:54] LABS: ALK PHOS 85 U/L (45-117)
[2020-12-23] MEDS ORDERED: methaDONE HCL 10 MG TABLET (FOR DETOX USE ONLY) PO ONE (09:43)
[2020-12-23] MEDS: LOSARTAN 50MG/HCTZ 12.5MG 1 TAB PO SCH (20:06)
[2020-12-23] MEDS ORDERED: ATORVASTATIN CA 10 MG TABLET (FP) PO SCH (22:00)
[2020-12-23] MEDS ORDERED: ONDANSETRON *ODT* 4 MG TABLET SL ONE (22:05)
[2020-12-23] MEDS: TAMSULOSIN HCL 0.4 MG CAP PO SCH (22:31)
[2020-12-23] MEDS: INSULIN SLIDING SCALE (NOVOLOG) 1 VIAL SQ SCH (22:31)
[2020-12-23] MEDS: MAG HYDROX/AL HYDROX/SIMETH 30 ML UNIT-DOSE CUP PO SCH (23:32)
[2020-12-24] MEDS ORDERED: MAG HYDROX/AL HYDROX/SIMETH -MYLANTA- ORAL SUSPENSION PO SCH
[2020-12-24] MEDS ORDERED: MELATONIN 5 MG TABLETS PO PRN (00:28)
[2020-12-24 00:51] LABS: LIPASE 48 U/L (73-393)
[2020-12-24] MEDS ORDERED: TRIMETHOBENZAMIDE HCL 200MG/2ML INJ IM ONE (04:24)
[2020-12-24] MEDS: MAG HYDROX/AL HYDROX/SIMETH 30 ML UNIT-DOSE CUP PO SCH ×2 (05:46→12:15)
[2020-12-24] MEDS: INSULIN SLIDING SCALE (NOVOLOG) 1 VIAL SQ SCH ×2 (06:13→11:24)
[2020-12-24 09:51] VITALS: BP 164/66; PULSE 49; TEMP 98.4
[2020-12-24] MEDS: LOSARTAN 50MG/HCTZ 12.5MG 1 TAB PO SCH (09:51)
[2020-12-24] MEDS: TAMSULOSIN HCL 0.4 MG CAP PO SCH (09:51)
[2020-12-24] MEDS ORDERED: ASPIRIN COATED 81 MG TABLET.EC PO SCH (10:00)
[2020-12-24] MEDS ORDERED: ENOXAPARIN NA (PORCINE) 40 MG/0.4 ML DISP.SYRIN SQ SCH (10:00)
[2020-12-24] MEDS ORDERED: methaDONE HCL 10 MG TABLET ONE (10:26)
[2020-12-25] MEDS ORDERED: methaDONE HCL 10 MG TABLET PO ONE (10:00)
== END 2020-12-24 15:03 | disposition left against medical advice (07) | DRG 552 ==
LOC: JER 05:19 → JERBED 09:11 → J4S 21:44
PROVIDERS: ADMIT Internal Medicine; ATTEND Internal Medicine
DX: S12.100A Unspecified displaced fracture of second cervical vertebra, initial encounter for closed fracture (principal); R55 Syncope and collapse; E78.5 Hyperlipidemia, unspecified; F19.10 Other psychoactive substance abuse, uncomplicated; R00.1 Bradycardia, unspecified; I44.0 Atrioventricular block, first degree; R42 Dizziness and giddiness; F17.210 Nicotine dependence, cigarettes, uncomplicated; E11.9 Type 2 diabetes mellitus without complications; F11.10 Opioid abuse, uncomplicated; I11.0 Hypertensive heart disease with heart failure; I50.9 Heart failure, unspecified; N40.0 Benign prostatic hyperplasia without lower urinary tract symptoms; W18.39XA Other fall on same level, initial encounter; Y92.89 Other specified places as the place of occurrence of the external cause
CPT/HCPCS: 36415; 70450-TC; 71045-TC-FY; 72125-TC; 72141-TC; 80053; 82550; 82962; 83690; 84484; 85025; 93005; 93010; 99285-25; C9803; Q0162; U0003; U0005

== ENCOUNTER 2021-01-01 11:55 | Emergency (ER) | payer OTHER ==
[2021-01-01 12:07] VITALS: BP 172/103; PULSE 75; TEMP 98.1; BMI 28.2
== END 2021-01-01 12:43 | disposition home or self-care (01) ==
LOC: JER 11:55 → JERFT 11:55
DX: S12.101A Unspecified nondisplaced fracture of second cervical vertebra, initial encounter for closed fracture (principal)
CPT/HCPCS: 99283-25

== ENCOUNTER 2021-05-01 16:01 | Inpatient (IN) | payer OTHER ==
[2021-05-01] MEDS ORDERED: BISMUTH SUBSALICYLATE 524 MG/30 ML PO PRN (19:16)
[2021-05-01] MEDS ORDERED: MAGNESIUM CITRATE 300 ML BOTTLE PO PRN (19:16)
[2021-05-01] MEDS ORDERED: MAG HYDROX/AL HYDROX/SIMETH 30 ML UNIT-DOSE CUP PO PRN (19:16)
[2021-05-01] MEDS ORDERED: LOPERAMIDE HCL 2 MG CAPSULE PO PRN (19:16)
[2021-05-01] MEDS ORDERED: MENTHOL/PHENOL 1 EACH UD MM PRN (19:16)
[2021-05-01] MEDS ORDERED: IBUPROFEN 400 MG TABLET (FP) PO PRN (19:16)
[2021-05-01] MEDS ORDERED: ACETAMINOPHEN 325 MG TABLET (FP) PO PRN ×2 (19:16)
[2021-05-01] MEDS ORDERED: METHOCARBAMOL 500 MG TABLET PO PRN (19:16)
[2021-05-01] MEDS ORDERED: MAGNESIUM HYDROX 2400MG/30ML ORAL SUSPENSION 30 ML CUP PO PRN (19:16)
[2021-05-01] MEDS ORDERED: ONDANSETRON *ODT* 4 MG TABLET SL PRN (19:16)
[2021-05-01] MEDS ORDERED: MELATONIN 5 MG TABLETS PO PRN (19:16)
[2021-05-01] MEDS ORDERED: cloNIDine HCL 0.1 MG TABLET PO PRN (19:21)
[2021-05-01] MEDS ORDERED: diazePAM 5 MG TABLET PO PRN (19:22)
[2021-05-01 19:54] VITALS: BMI 29.2
[2021-05-01] MEDS ORDERED: methaDONE HCL 10 MG TABLET (FOR DETOX USE ONLY) PO ONE (21:00)
[2021-05-02] MEDS: diazePAM 5 MG TABLET PO SCH ×5 (01:12→22:24)
[2021-05-02] MEDS: INSULIN SLIDING SCALE (NOVOLOG) 1 VIAL SQ SCH ×6 (01:14→22:26)
[2021-05-02] MEDS: ASPIRIN COATED 81 MG TABLET.EC PO SCH ×2 (01:14→10:15)
[2021-05-02] MEDS: THIAMINE HCL 100 MG TABLET (FP) PO SCH ×2 (01:15→22:24)
[2021-05-02] MEDS: ATORVASTATIN CA 10 MG TABLET (FP) PO SCH ×2 (01:17→22:24)
[2021-05-02] MEDS ORDERED: TAMSULOSIN HCL 0.4 MG CAP PO SCH (08:30)
[2021-05-02] MEDS ORDERED: methaDONE HCL 10 MG TABLET (FOR DETOX USE ONLY) ONE (09:05)
[2021-05-02] MEDS ORDERED: PRENATAL VITAMINS W/ FOLIC ACID TABLET (FP) PO SCH (10:00)
[2021-05-02] MEDS: hydrOXYzine PAMOATE 25 MG CAPSULE (FP) PO PRN ×2 (10:16→22:25)
[2021-05-02 16:25] LABS: BASO % 0.8 % (0-2.0); EOS % 8.1 % (0-4.5); HEMOGLOBIN 14.2 GM/dL (11.7-16.9); LYMPH % 27.9 % (8-40); MCH 31.1 pg (25.7-33.7); MCHC 34.5 g/dl (32.0-35.9); MEAN PLT VOLUME 8.7 fl (7.5-11.1); MONO % 10.4 % (3.8-10.2); NEUT % 52.8 % (42.8-82.8); PLATELET COUNT 159 10^3/uL (134-434); RBC 4.56 M/mm3 (4.00-5.60)
[2021-05-02 16:26] LABS: ALBUMIN 3.6 g/dl (3.4-5.0)
[2021-05-02 16:27] LABS: BLOOD UREA NITROGEN 8.9 mg/dL (7-18)
[2021-05-02 16:30] LABS: CREATININE 0.8 mg/dL (0.55-1.3)
[2021-05-02 16:32] LABS: BILIRUBIN,TOTAL 1.3 mg/dL (0.2-1); TOT PROT 6.7 g/dl (6.4-8.2)
[2021-05-02] MEDS ORDERED: INSULIN (LEVEMIR) 100 UNITS/ML UNITS SQ SCH (22:00)
[2021-05-02 22:09] VITALS: PULSE 50
[2021-05-03] MEDS ORDERED: diazePAM 5 MG TABLET PO SCH (06:00)
[2021-05-03] MEDS ORDERED: EMPAGLIFLOZIN (NF) 10 MG TABLET PO SCH (08:00)
[2021-05-03] MEDS: INSULIN SLIDING SCALE (NOVOLOG) 1 VIAL SQ SCH (08:05)
[2021-05-03 09:44] VITALS: BP 166/77; TEMP 97.1
[2021-05-03] MEDS ORDERED: methaDONE HCL 10 MG TABLET (FOR DETOX USE ONLY) PO ONE (10:00)
[2021-05-03] MEDS ORDERED: HYDROCHLOROTHIAZIDE 25 MG TABLET (FP) PO SCH (10:00)
[2021-05-04] MEDS ORDERED: diazePAM 5 MG TABLET PO SCH (06:00)
[2021-05-05] MEDS ORDERED: diazePAM 5 MG TABLET PO ONE (06:00)
[2021-05-05] MEDS ORDERED: methaDONE HCL 10 MG TABLET (FOR DETOX USE ONLY) PO ONE (10:00)
== END 2021-05-03 11:00 | disposition left against medical advice (07) | DRG 894 ==
LOC: YASAS 16:01 → Y6N 23:04
PROVIDERS: ADMIT Allergy & Immunology; ATTEND Allergy & Immunology
PROC: HZ2ZZZZ Detoxification Services for Substance Abuse Treatment (ICD-10-PCS; principal; 2021-05-01)
DX: F11.23 Opioid dependence with withdrawal (principal); F13.230 Sedative, hypnotic or anxiolytic dependence with withdrawal, uncomplicated; F17.210 Nicotine dependence, cigarettes, uncomplicated; I11.0 Hypertensive heart disease with heart failure; I50.9 Heart failure, unspecified; E11.9 Type 2 diabetes mellitus without complications; Z79.4 Long term (current) use of insulin; N40.0 Benign prostatic hyperplasia without lower urinary tract symptoms; R74.01 Elevation of levels of liver transaminase levels; Z91.018 Allergy to other foods
CPT/HCPCS: 36415; 80053; 82962; 85025; 86780; C9803; J0735; U0003; U0005

== ENCOUNTER 2021-07-02 15:17 | Observation (INO) | payer BC, OTHER ==
[2021-07-02] MEDS ORDERED: LOSARTAN 50MG/HCTZ 12.5MG 1 TAB PO ONE (16:40)
[2021-07-02] MEDS ORDERED: amLODIPine BESYLATE 10 MG TABLET (FP) PO ONE (16:40)
[2021-07-02] MEDS ORDERED: amLODIPine BESYLATE 10 MG TABLET (FP) ONE (16:52)
[2021-07-02 17:08] LABS: BASO % 0.6 % (0-2.0); EOS % 4.7 % (0-4.5); HEMATOCRIT 46.3 % (35.4-49); HEMOGLOBIN 15.8 GM/dL (11.7-16.9); LYMPH % 24.6 % (8-40); MEAN CELL VOLUME 88.3 fl (80-96); MEAN PLT VOLUME 8.6 fl (7.5-11.1); MONO % 8.7 % (3.8-10.2); NEUT % 61.4 % (42.8-82.8); PLATELET COUNT 213 10^3/uL (134-434); RBC 5.24 M/mm3 (4.00-5.60); RDW 13.4 % (11.9-15.9); WHITE BLOOD COUNT 4.9 K/mm3 (4.0-10.0)
[2021-07-02 17:16] LABS: INR 1.1 (0.83-1.09); PROTHROMBIN TIME (PATIENT) 12.7 SEC (9.7-13.0)
[2021-07-02 17:19] LABS: ACTIVATED PTT 28.9 SECONDS (25.2-36.5)
[2021-07-02 17:26] LABS: CALCIUM 9.3 mg/dL (8.5-10.1)
[2021-07-02 17:27] LABS: ALBUMIN 3.9 g/dl (3.4-5.0); BLOOD UREA NITROGEN 12.5 mg/dL (7-18)
[2021-07-02 17:30] LABS: CREATININE 0.9 mg/dL (0.55-1.3)
[2021-07-02 17:32] LABS: BILIRUBIN,TOTAL 0.6 mg/dL (0.2-1)
[2021-07-02] MEDS ORDERED: HYDROCHLOROTHIAZIDE 12.5 MG CAPSULE (FP) PO ONE (19:27)
[2021-07-02] MEDS ORDERED: HYDROCHLOROTHIAZIDE 25 MG TABLET (FP) ONE (19:27)
[2021-07-02] MEDS ORDERED: hydrALAZINE HCL 50 MG TABLET (FP) PO PRN ×2 (20:13→20:31)
[2021-07-02] MEDS ORDERED: cloNIDine HCL 0.1 MG TABLET ONE (21:13)
[2021-07-02] MEDS: cloNIDine HCL 0.1 MG TABLET PO SCH (21:16)
[2021-07-02] MEDS: NICOTINE 14 MG/24 HOURS TOPICAL PATCH TD SCH (22:20)
[2021-07-03] MEDS: INSULIN SLIDING SCALE (NOVOLOG) 1 VIAL SQ SCH ×5 (00:11→21:28)
[2021-07-03 05:18] VITALS: BMI 28.2
[2021-07-03] MEDS: cloNIDine HCL 0.1 MG TABLET PO SCH ×2 (05:55→14:51)
[2021-07-03 07:32] LABS: BASO % 0.5 % (0-2.0); EOS % 5.6 % (0-4.5); HEMATOCRIT 44.4 % (35.4-49); LYMPH % 23.3 % (8-40); MCH 29.8 pg (25.7-33.7); MCHC 33.8 g/dl (32.0-35.9); MEAN CELL VOLUME 88.1 fl (80-96); MEAN PLT VOLUME 8.3 fl (7.5-11.1); MONO % 11.3 % (3.8-10.2); NEUT % 59.3 % (42.8-82.8); PLATELET COUNT 169 10^3/uL (134-434); RBC 5.04 M/mm3 (4.00-5.60); RDW 12.9 % (11.9-15.9); WHITE BLOOD COUNT 5.4 K/mm3 (4.0-10.0)
[2021-07-03 07:33] LABS: CALCIUM 9.2 mg/dL (8.5-10.1)
[2021-07-03 07:34] LABS: ALBUMIN 3.6 g/dl (3.4-5.0); BLOOD UREA NITROGEN 10.2 mg/dL (7-18); MAGNESIUM 1.8 mg/dL (1.8-2.4)
[2021-07-03 07:37] LABS: CREATININE 0.8 mg/dL (0.55-1.3)
[2021-07-03 07:38] LABS: BILIRUBIN,TOTAL 1.1 mg/dL (0.2-1); TOT PROT 7.3 g/dl (6.4-8.2)
[2021-07-03] MEDS: TAMSULOSIN HCL 0.4 MG CAP PO SCH (08:30)
[2021-07-03] MEDS: HYDROCHLOROTHIAZIDE 25 MG TABLET (FP) PO SCH (09:27)
[2021-07-03] MEDS: amLODIPine BESYLATE 10 MG TABLET (FP) PO SCH (09:27)
[2021-07-03] MEDS: ENOXAPARIN NA (PORCINE) 40 MG/0.4 ML DISP.SYRIN SQ SCH ×2 (09:27→09:43)
[2021-07-03] MEDS: LOSARTAN POTASSIUM 50 MG TABLET PO SCH (09:27)
[2021-07-03] MEDS: NICOTINE 14 MG/24 HOURS TOPICAL PATCH TD SCH ×2 (09:28→09:43)
[2021-07-03] MEDS ORDERED: HYDROCHLOROTHIAZIDE 12.5 MG CAPSULE (FP) PO SCH (10:00)
[2021-07-03] MEDS ORDERED: chlordiazePOXIDE HCL 25 MG CAPSULE PO PRN (11:19)
[2021-07-03] MEDS: chlordiazePOXIDE HCL 25 MG CAPSULE PO SCH ×3 (11:55→22:04)
[2021-07-03] MEDS ORDERED: cloNIDine HCL 0.1 MG TABLET PO PRN ×3 (15:02→16:31)
[2021-07-04] MEDS: chlordiazePOXIDE HCL 25 MG CAPSULE PO SCH ×2 (05:44→11:02)
[2021-07-04] MEDS: INSULIN SLIDING SCALE (NOVOLOG) 1 VIAL SQ SCH ×2 (06:04→11:00)
[2021-07-04 07:22] LABS: BASO % 0.4 % (0-2.0); EOS % 1.9 % (0-4.5); HEMATOCRIT 48.9 % (35.4-49); HEMOGLOBIN 16.8 GM/dL (11.7-16.9); LYMPH % 18.8 % (8-40); MCH 30.2 pg (25.7-33.7); MCHC 34.4 g/dl (32.0-35.9); MEAN CELL VOLUME 87.7 fl (80-96); MEAN PLT VOLUME 8.2 fl (7.5-11.1); MONO % 10.2 % (3.8-10.2); NEUT % 68.7 % (42.8-82.8); PLATELET COUNT 204 10^3/uL (134-434); RBC 5.58 M/mm3 (4.00-5.60); WHITE BLOOD COUNT 7.9 K/mm3 (4.0-10.0)
[2021-07-04 07:51] LABS: CALCIUM 9.8 mg/dL (8.5-10.1)
[2021-07-04 07:52] LABS: BLOOD UREA NITROGEN 23.3 mg/dL (7-18); MAGNESIUM 2.1 mg/dL (1.8-2.4)
[2021-07-04 07:55] LABS: CREATININE 0.9 mg/dL (0.55-1.3); PHOSPHOROUS 3.5 mg/dL (2.5-4.9)
[2021-07-04 07:57] LABS: BILIRUBIN,TOTAL 1.6 mg/dL (0.2-1)
[2021-07-04] MEDS: TAMSULOSIN HCL 0.4 MG CAP PO SCH ×2 (09:06→11:11)
[2021-07-04] MEDS: ENOXAPARIN NA (PORCINE) 40 MG/0.4 ML DISP.SYRIN SQ SCH (10:59)
[2021-07-04] MEDS: ASPIRIN COATED 81 MG TABLET.EC PO SCH ×2 (10:59→11:12)
[2021-07-04] MEDS: LOSARTAN POTASSIUM 50 MG TABLET PO SCH ×2 (10:59→11:11)
[2021-07-04] MEDS: NICOTINE 14 MG/24 HOURS TOPICAL PATCH TD SCH (10:59)
[2021-07-04] MEDS: HYDROCHLOROTHIAZIDE 25 MG TABLET (FP) PO SCH ×2 (11:00→11:12)
[2021-07-04] MEDS: amLODIPine BESYLATE 10 MG TABLET (FP) PO SCH ×2 (11:00→11:13)
[2021-07-04] MEDS ORDERED: PANTOPRAZOLE SODIUM 40 MG VIAL IVPUSH SCH (11:15)
[2021-07-04 11:54] LABS: BILIRUBIN,DIRECT 0.4 mg/dL (0.0-0.2)
[2021-07-04 14:35] VITALS: BP 144/73; PULSE 86; TEMP 98.1
[2021-07-05] MEDS ORDERED: chlordiazePOXIDE HCL 25 MG CAPSULE PO SCH (05:00)
[2021-07-06] MEDS ORDERED: chlordiazePOXIDE HCL 10 MG CAPSULE PO PRN
[2021-07-06] MEDS ORDERED: chlordiazePOXIDE HCL 10 MG CAPSULE PO SCH (05:00)
[2021-07-07] MEDS ORDERED: chlordiazePOXIDE HCL 10 MG CAPSULE PO SCH (05:00)
[2021-07-08] MEDS ORDERED: chlordiazePOXIDE HCL 10 MG CAPSULE PO ONE (05:00)
== END 2021-07-04 15:12 | disposition left against medical advice (07) ==
LOC: JER 15:17 → JERBED 19:31 → J4W 07-03 05:10
PROVIDERS: ADMIT Internal Medicine; ATTEND Internal Medicine
DX: R07.89 Other chest pain (principal); R01.1 Cardiac murmur, unspecified; I16.0 Hypertensive urgency; I11.0 Hypertensive heart disease with heart failure; I50.9 Heart failure, unspecified; I25.10 Atherosclerotic heart disease of native coronary artery without angina pectoris; E11.9 Type 2 diabetes mellitus without complications; E78.5 Hyperlipidemia, unspecified; F13.230 Sedative, hypnotic or anxiolytic dependence with withdrawal, uncomplicated; F11.10 Opioid abuse, uncomplicated; N40.0 Benign prostatic hyperplasia without lower urinary tract symptoms; R74.01 Elevation of levels of liver transaminase levels; Z79.4 Long term (current) use of insulin; Z79.84 Long term (current) use of oral hypoglycemic drugs
CPT/HCPCS: 36415; 71045-TC-FY; 76705-TC; 80053; 80061; 82248; 82962; 83036; 83690; 83735; 84100; 84439; 84443; 84484; 85025; 85610; 85730; 86705; 86803; 86900; 87340; 87517; 87522; 93005; 93010; 93306-TC; 99285-25; C9803-CS; G0378; J0735; U0003; U0005

== ENCOUNTER 2021-12-10 12:37 | Emergency (ER) | payer BC, OTHER ==
[2021-12-10 13:03] VITALS: RESP 20; BMI 33.2
[2021-12-10] MEDS ORDERED: cloNIDine HCL 0.1 MG TABLET PO ONE (13:42)
[2021-12-10] MEDS ORDERED: cloNIDine HCL 0.1 MG TABLET ONE (13:48)
[2021-12-10 16:41] LABS: BASO % 0.7 % (0-2.0); EOS % 0.1 % (0-4.5); HEMOGLOBIN 15.2 GM/dL (11.7-16.9); LYMPH % 13.6 % (8-40); MCH 29.6 pg (25.7-33.7); MCHC 33.1 g/dl (32.0-35.9); MEAN CELL VOLUME 89.3 fl (80-96); MEAN PLT VOLUME 9.1 fl (7.5-11.1); MONO % 3.9 % (3.8-10.2); NEUT % 81.7 % (42.8-82.8); PLATELET COUNT 224 10^3/uL (134-434); RBC 5.16 M/mm3 (4.00-5.60); RDW 13.3 % (11.9-15.9); WHITE BLOOD COUNT 9.2 K/mm3 (4.0-10.0)
[2021-12-10 16:44] LABS: INR 1.21 (0.83-1.09)
[2021-12-10 16:45] VITALS: BP 179/86; PULSE 60; TEMP 97.4
[2021-12-10 16:47] LABS: ACTIVATED PTT 37.1 SECONDS (25.2-36.5)
[2021-12-10 17:00] LABS: CALCIUM 9.5 mg/dL (8.5-10.1)
[2021-12-10 17:01] LABS: ALBUMIN 4.2 g/dl (3.4-5.0); BLOOD UREA NITROGEN 11.3 mg/dL (7-18)
[2021-12-10 17:04] LABS: CREATININE 0.8 mg/dL (0.55-1.3)
[2021-12-10 17:05] LABS: BILIRUBIN,TOTAL 0.9 mg/dL (0.2-1)
[2021-12-10 17:06] LABS: TOT PROT 8.3 g/dl (6.4-8.2)
[2021-12-10] MEDS ORDERED: chlordiazePOXIDE HCL 25 MG CAPSULE PO ONE (20:10)
[2021-12-10] MEDS ORDERED: chlordiazePOXIDE HCL 25 MG CAPSULE ONE (20:15)
== END 2021-12-10 20:44 | disposition home or self-care (01) ==
LOC: JER 12:37
DX: N40.1 Benign prostatic hyperplasia with lower urinary tract symptoms (principal); F13.20 Sedative, hypnotic or anxiolytic dependence, uncomplicated; F11.20 Opioid dependence, uncomplicated; I10 Essential (primary) hypertension
CPT/HCPCS: 36415; 71046-TC-FY; 80053; 84484; 85025; 85610; 85730; 93005; 93010; 99285-25

== ENCOUNTER 2021-12-11 02:08 | Observation (INO) | payer BC, OTHER ==
[2021-12-11] MEDS ORDERED: ACETAMINOPHEN 1000 MG/100 ML BAG IVPB ONE (02:54)
[2021-12-11] MEDS ORDERED: hydrALAZINE HCL 10 MG TABLET PO ONE ×2 (03:04→06:07)
[2021-12-11] MEDS ORDERED: FUROSEMIDE 40 MG/4 ML INJECTABLE VIAL IVPUSH ONE (03:04)
[2021-12-11] MEDS ORDERED: hydrALAZINE HCL 10 MG TABLET ONE ×2 (03:23→06:39)
[2021-12-11] MEDS ORDERED: ACETAMINOPHEN INJECTION 100 ML IVPB ONE ×2 (03:23→20:19)
[2021-12-11] MEDS ORDERED: FUROSEMIDE 40 MG/4 ML INJECTABLE VIAL ONE (03:23)
[2021-12-11 03:47] LABS: BASO % 0.7 % (0-2.0); EOS % 0.1 % (0-4.5); HEMATOCRIT 43.6 % (35.4-49); HEMOGLOBIN 14.9 GM/dL (11.7-16.9); LYMPH % 13.8 % (8-40); MCHC 34.2 g/dl (32.0-35.9); MEAN CELL VOLUME 87.8 fl (80-96); MEAN PLT VOLUME 8.1 fl (7.5-11.1); MONO % 2.7 % (3.8-10.2); NEUT % 82.7 % (42.8-82.8); PLATELET COUNT 192 10^3/uL (134-434); RBC 4.97 M/mm3 (4.00-5.60); RDW 13.1 % (11.9-15.9); WHITE BLOOD COUNT 9.3 K/mm3 (4.0-10.0)
[2021-12-11 04:08] LABS: ALBUMIN 3.8 g/dl (3.4-5.0); BLOOD UREA NITROGEN 14.8 mg/dL (7-18); CALCIUM 9.4 mg/dL (8.5-10.1)
[2021-12-11 04:09] LABS: MAGNESIUM 1.6 mg/dL (1.8-2.4)
[2021-12-11 04:11] LABS: CREATININE 0.9 mg/dL (0.55-1.3)
[2021-12-11 04:13] LABS: BILIRUBIN,TOTAL 1.2 mg/dL (0.2-1); TOT PROT 7.6 g/dl (6.4-8.2)
[2021-12-11 04:16] LABS: N-TERMINAL BNP 1647.3 pg/ml (5-125)
[2021-12-11] MEDS ORDERED: MAGNESIUM SULFATE IN WATER 2 GM/50 ML IVPB IVPB ONE ×2 (06:02→06:39)
[2021-12-11 06:03] LABS: URINE APPEARANCE CLEAR; URINE BILIRUBIN NEGATIVE (NEGATIVE); URINE COLOR YELLOW; URINE GLUCOSE (UA) NEGATIVE (NEGATIVE); URINE KETONE NEGATIVE (NEGATIVE); URINE LEUK ESTERASE NEGATIVE (NEGATIVE); URINE NITRITE NEGATIVE (NEGATIVE); URINE PROTEIN NEGATIVE (NEGATIVE); URINE UROBILINOGEN 0.2 mg/dL (0.2-1.0)
[2021-12-11] MEDS ORDERED: PROCHLORPERAZINE INJECTION 10 MG/2 ML VIAL IVPB ONE ×2 (06:52→21:47)
[2021-12-11] MEDS ORDERED: cloNIDine HCL 0.1 MG TABLET PO PRN (06:58)
[2021-12-11] MEDS ORDERED: methaDONE HCL 10 MG TABLET PO ONE (07:30)
[2021-12-11] MEDS ORDERED: methaDONE HCL 10 MG TABLET ONE (07:51)
[2021-12-11] MEDS ORDERED: ENOXAPARIN NA (PORCINE) 40 MG/0.4 ML DISP.SYRIN SQ ONE ×2 (07:51→08:03)
[2021-12-11] MEDS ORDERED: HYDROCHLOROTHIAZIDE 25 MG TABLET (FP) ONE (08:02)
[2021-12-11] MEDS ORDERED: LOSARTAN POTASSIUM 50 MG TABLET ONE ×2 (08:02→11:20)
[2021-12-11] MEDS ORDERED: ASPIRIN 81 MG CHEWABLE TABLETS ONE (08:03)
[2021-12-11] MEDS ORDERED: LIDOCAINE 5% TOPICAL PATCH ONE (08:03)
[2021-12-11] MEDS ORDERED: ACETAMINOPHEN 1000 MG/100 ML BAG IVPB PRN (09:00)
[2021-12-11] MEDS ORDERED: HYDROCHLOROTHIAZIDE 25 MG TABLET (FP) PO SCH (10:00)
[2021-12-11] MEDS ORDERED: LOSARTAN POTASSIUM 50 MG TABLET PO SCH (10:00)
[2021-12-11] MEDS ORDERED: amLODIPine BESYLATE 5 MG TABLET (FP) PO SCH (10:00)
[2021-12-11] MEDS ORDERED: LIDOCAINE 5% TOPICAL PATCH TP SCH (10:00)
[2021-12-11] MEDS ORDERED: amLODIPine BESYLATE 10 MG TABLET (FP) ONE (11:05)
[2021-12-11] MEDS ORDERED: TAMSULOSIN HCL 0.4 MG CAP ONE (11:05)
[2021-12-11] MEDS: ASPIRIN COATED 81 MG TABLET.EC PO SCH (11:17)
[2021-12-11] MEDS: LOSARTAN POTASSIUM 50 MG TABLET PO SCH (11:17)
[2021-12-11] MEDS: TAMSULOSIN HCL 0.4 MG CAP PO SCH (11:17)
[2021-12-11] MEDS: ENOXAPARIN NA (PORCINE) 40 MG/0.4 ML DISP.SYRIN SQ SCH (11:18)
[2021-12-11] MEDS: amLODIPine BESYLATE 10 MG TABLET (FP) PO SCH (11:18)
[2021-12-11] MEDS: INSULIN SLIDING SCALE (NOVOLOG) 1 VIAL SQ SCH ×3 (11:18→22:14)
[2021-12-11] MEDS ORDERED: LISINOPRIL 10 MG TABLET PO ONE (14:39)
[2021-12-11] MEDS ORDERED: LISINOPRIL 10 MG TABLET ONE (15:41)
[2021-12-11] MEDS ORDERED: hydrALAZINE HCL 20 MG/ML VIAL ONE (20:19)
[2021-12-11] MEDS: hydrALAZINE HCL 20 MG/ML VIAL IVPUSH PRN (20:44)
[2021-12-11] MEDS ORDERED: LIDOCAINE PATCH REMOVAL MC SCH (22:00)
[2021-12-11] MEDS ORDERED: QUEtiapine FUMARATE 50 MG TABLET PO SCH (22:00)
[2021-12-11] MEDS: ATORVASTATIN CA 10 MG TABLET (FP) PO SCH (22:14)
[2021-12-11 23:20] VITALS: BMI 27.8
[2021-12-12] MEDS: hydrALAZINE HCL 20 MG/ML VIAL IVPUSH PRN (05:26)
[2021-12-12] MEDS: INSULIN SLIDING SCALE (NOVOLOG) 1 VIAL SQ SCH ×5 (06:32→21:15)
[2021-12-12] MEDS ORDERED: TRIMETHOBENZAMIDE HCL 200MG/2ML INJ IM PRN (06:34)
[2021-12-12 06:50] LABS: BASO % 0.3 % (0-2.0); HEMATOCRIT 49.3 % (35.4-49); LYMPH % 16.2 % (8-40); MCH 29.8 pg (25.7-33.7); MCHC 34.5 g/dl (32.0-35.9); MEAN CELL VOLUME 86.5 fl (80-96); MEAN PLT VOLUME 8.9 fl (7.5-11.1); MONO % 4.1 % (3.8-10.2); NEUT % 79.4 % (42.8-82.8); PLATELET COUNT 253 10^3/uL (134-434); RBC 5.71 M/mm3 (4.00-5.60); RDW 12.9 % (11.9-15.9); WHITE BLOOD COUNT 12.3 K/mm3 (4.0-10.0)
[2021-12-12 07:09] LABS: BLOOD UREA NITROGEN 23.2 mg/dL (7-18)
[2021-12-12 07:12] LABS: PHOSPHOROUS 2.9 mg/dL (2.5-4.9)
[2021-12-12] MEDS ORDERED: FOSAPREPITANT DIMEGLUMINE 150 MG in SODIUM CHLORIDE 145 ML IVPB ONE (07:19)
[2021-12-12] MEDS: POTASSIUM CHLORIDE TABS 20 MEQ TABLET.ER (FP) PO SCH ×2 (08:32→20:05)
[2021-12-12] MEDS: TAMSULOSIN HCL 0.4 MG CAP PO SCH (08:32)
[2021-12-12] MEDS ORDERED: DEXAMETHASONE SOD PHOSPHATE 10 MG/1 ML VIAL IVPUSH PRN (08:49)
[2021-12-12] MEDS ORDERED: LISINOPRIL 20 MG TABLET PO SCH ×2 (10:00→12:51)
[2021-12-12] MEDS ORDERED: LISINOPRIL 10 MG TABLET PO SCH (10:00)
[2021-12-12] MEDS: ASPIRIN COATED 81 MG TABLET.EC PO SCH (10:15)
[2021-12-12] MEDS: amLODIPine BESYLATE 10 MG TABLET (FP) PO SCH (10:15)
[2021-12-12] MEDS: ENOXAPARIN NA (PORCINE) 40 MG/0.4 ML DISP.SYRIN SQ SCH (10:15)
[2021-12-12] MEDS: FUROSEMIDE 40 MG TABLET (FP) PO SCH (10:15)
[2021-12-12] MEDS: LOSARTAN POTASSIUM 50 MG TABLET PO SCH (10:15)
[2021-12-12] MEDS ORDERED: LISINOPRIL 20 MG TABLET PO ONE (12:49)
[2021-12-12 16:04] LABS: BASO % 0.4 % (0-2.0); HEMATOCRIT 48.8 % (35.4-49); LYMPH % 13.9 % (8-40); MCHC 34.7 g/dl (32.0-35.9); MEAN CELL VOLUME 86.4 fl (80-96); MEAN PLT VOLUME 7.9 fl (7.5-11.1); MONO % 6.7 % (3.8-10.2); PLATELET COUNT 228 10^3/uL (134-434); RBC 5.65 M/mm3 (4.00-5.60); RDW 13.4 % (11.9-15.9); WHITE BLOOD COUNT 11.8 K/mm3 (4.0-10.0)
[2021-12-12] MEDS ORDERED: ACETAMINOPHEN 325 MG TABLET (FP) PO PRN (17:37)
[2021-12-12] MEDS: ATORVASTATIN CA 10 MG TABLET (FP) PO SCH (21:16)
[2021-12-13] MEDS ORDERED: methaDONE HCL 10 MG TABLET PO ONE (06:00)
[2021-12-13] MEDS: INSULIN SLIDING SCALE (NOVOLOG) 1 VIAL SQ SCH ×2 (06:10→11:53)
[2021-12-13 07:33] LABS: BASO % 0.5 % (0-2.0); HEMOGLOBIN 17.4 GM/dL (11.7-16.9); LYMPH % 13.8 % (8-40); MCH 29.3 pg (25.7-33.7); MCHC 33.5 g/dl (32.0-35.9); MEAN CELL VOLUME 87.5 fl (80-96); MONO % 8.1 % (3.8-10.2); NEUT % 77.6 % (42.8-82.8); PLATELET COUNT 263 10^3/uL (134-434); RBC 5.94 M/mm3 (4.00-5.60); RDW 13.3 % (11.9-15.9); WHITE BLOOD COUNT 13.2 K/mm3 (4.0-10.0)
[2021-12-13 08:01] LABS: ALBUMIN 4.2 g/dl (3.4-5.0); BLOOD UREA NITROGEN 32.8 mg/dL (7-18); CALCIUM 9.8 mg/dL (8.5-10.1)
[2021-12-13 08:02] LABS: MAGNESIUM 2.2 mg/dL (1.8-2.4)
[2021-12-13 08:05] LABS: BILIRUBIN,TOTAL 2.2 mg/dL (0.2-1)
[2021-12-13 08:07] LABS: TOT PROT 8.2 g/dl (6.4-8.2)
[2021-12-13] MEDS: ENOXAPARIN NA (PORCINE) 40 MG/0.4 ML DISP.SYRIN SQ SCH (09:21)
[2021-12-13] MEDS: LOSARTAN POTASSIUM 50 MG TABLET PO SCH (09:21)
[2021-12-13] MEDS: amLODIPine BESYLATE 10 MG TABLET (FP) PO SCH (09:21)
[2021-12-13] MEDS: FUROSEMIDE 40 MG TABLET (FP) PO SCH (09:22)
[2021-12-13] MEDS: ASPIRIN COATED 81 MG TABLET.EC PO SCH (09:22)
[2021-12-13] MEDS: TAMSULOSIN HCL 0.4 MG CAP PO SCH (09:22)
[2021-12-13] MEDS ORDERED: LISINOPRIL 20 MG TABLET PO SCH (10:00)
[2021-12-13 12:05] VITALS: BP 176/95; PULSE 74; RESP 16; TEMP 99.2
[2021-12-15] MEDS ORDERED: methaDONE HCL 10 MG TABLET PO ONE (06:00)
== END 2021-12-13 14:54 ==
LOC: JER 02:08 → JERBED 05:48 → J4W 21:13
PROVIDERS: ADMIT Family Medicine; ATTEND Nurse Practitioner Acute Care
PROC: 3E033NZ Introduction of Analgesics, Hypnotics, Sedatives into Peripheral Vein, Percutaneous Approach (ICD-10-PCS; principal; 2021-12-11)
PROC: 3E023GC Introduction of Other Therapeutic Substance into Muscle, Percutaneous Approach (ICD-10-PCS; 2021-12-11)
PROC: 3E033GC Introduction of Other Therapeutic Substance into Peripheral Vein, Percutaneous Approach (ICD-10-PCS; 2021-12-11)
DX: I16.0 Hypertensive urgency (principal); F11.93 Opioid use, unspecified with withdrawal; F13.939 Sedative, hypnotic or anxiolytic use, unspecified with withdrawal, unspecified; E78.5 Hyperlipidemia, unspecified; E11.9 Type 2 diabetes mellitus without complications; N40.0 Benign prostatic hyperplasia without lower urinary tract symptoms; Z91.018 Allergy to other foods
CPT/HCPCS: 0241U-QW; 36415; 70450-TC; 71045-TC-FY; 80048; 80053; 81003; 82962; 83735; 83880; 84100; 84484; 85025; 87086; 93005; 93010; 96372; 96374; 96375; 96376; 97116-GP; 97161-GP; 99285-25; G0378